=== PATIENT | female | born 1955 | race Caucasian/White ===

== ENCOUNTER 2016-09-30 11:21 | Inpatient (IN) | payer OTHER ==
[~2016-09-30] VITALS: Ht 152.4 cm; Wt 63.4 kg
[2016-09-30] VITALS (27 sets, daily range): BP systolic 81–151; BP diastolic 51–76; PULSE 86–112; RESP 12–22; Ht 152.4 cm; Wt 63.4 kg
[~2016-09-30 11:21] MED LIST: [UNRECOGNIZED DRUG - REMARK]
[2016-09-30] MEDS ORDERED: ATOR20TA38 PO (11:43)
[2016-09-30] MEDS ORDERED: PANT40TA3 PO (11:43)
[2016-09-30] MEDS ORDERED: CHOL400C PO (11:44)
[2016-09-30] MEDS ORDERED: CALC600T5 PO (11:45)
[2016-09-30] MEDS ORDERED: ALEN70TA30 PO (11:45)
[2016-09-30] MEDS ORDERED: ESCI10TA PO (11:49)
[2016-09-30] MEDS ORDERED: metroNIDAZOLE 500 MG/NS (PMX) 100 ML IVPB ONE (12:30)
[2016-09-30] MEDS ORDERED: AMPICILLIN/SULB 3 GM/NS (PMX) 100 ML IVPB ONE (12:30)
[2016-09-30] MEDS ORDERED: SOD CHLORIDE 0.9% 1,000 ML IV ONE (12:30)
[2016-09-30] MEDS ORDERED: BUPIVACAINE 0.25% (MPF) 10 ML 10 ML VIAL ONE (14:47)
[2016-09-30] MEDS ORDERED: morphine SULFATE/PF (10 MG/10 ML) INJ ONE (14:59)
[2016-09-30] MEDS ORDERED: MIDAZOLAM 1 MG/ML 2 ML INJ ONE (14:59)
[2016-09-30] MEDS ORDERED: METOCLOPRAMIDE 10 MG INJ IV PRN (16:30)
[2016-09-30] MEDS ORDERED: MEPERIDINE 25 MG INJ IV PRN (16:30)
[2016-09-30] MEDS ORDERED: ONDANSETRON 4 MG INJ IV PRN (16:30)
[2016-09-30] MEDS ORDERED: HYDROmorphONE (0.2 MG/ML) 10ML SYG IV PRN ×2 (16:30)
[2016-09-30] MEDS ORDERED: FENTAnyl 50 MCG/ML VIAL IV PRN (16:30)
[2016-09-30] MEDS ORDERED: NALOXONE (0.4 MG/ML) INJ IV PRN ×2 (16:30→21:00)
[2016-09-30] MEDS ORDERED: DIPHENHYDRAMINE 50 MG INJ IV PRN (16:30)
[2016-09-30] MEDS ORDERED: METHYLENE BLUE 1% 10 ML INJ ONE (17:43)
[2016-09-30] MEDS ORDERED: EPHEDrine SULFATE 50 MG/5 ML SYG ONE (18:27)
[2016-09-30] MEDS ORDERED: BUPIVACAINE 0.25% (MPF) 30 ML INJ ONE (20:26)
[2016-09-30] MEDS ORDERED: ROCURONIUM 50 MG INJ ONE (20:30)
[2016-09-30] MEDS ORDERED: LIDOCAINE 2% (SDV) 5 ML INJ ONE (20:30)
[2016-09-30] MEDS ORDERED: NEOSTIGMINE 3 MG/3 ML SYRINGE ONE (20:30)
[2016-09-30] MEDS ORDERED: ETOMIDATE 20 MG INJ ONE (20:30)
[2016-09-30] MEDS ORDERED: GLYCOPYRROLATE 0.4 MG INJ ONE (20:30)
[2016-09-30] MEDS ORDERED: ONDANSETRON 4 MG INJ ONE (20:31)
--- NOTE | 2016-09-30 20:44 | OPR ---
DATE OF OPERATION: 09/30/2016 PREOPERATIVE DIAGNOSIS: The patient was undergoing a sigmoid resection for a sigmoid polyp and had the left ureter transected between 10 to 12 cm below the ureteropelvic junction, so I was called to the operating room to help take care of this. POSTOPERATIVE DIAGNOSIS: The patient was undergoing a sigmoid resection for a sigmoid polyp and had the left ureter transected between 10 to 12 cm below the ureteropelvic junction, so I was called to the operating room to help take care of this. OPERATION PERFORMED: Left ureteroureterostomy and insertion of left ureteral JJ stent, 6-Burkinan x 28 cm long. TECHNIQUE: The patient was already in the operating room and the abdomen was opened. The 2 ends of the ureter were identified and the lower end was mobilized a little bit so one could bring it up without any tension. The clips that were on both sides of the ureter were used to use a little traction and then the upper segment was cut just proximal to the clip and then fish mouthed with a Chavarria scissors and the other side was done the same. Then I tried to put a 24 cm long x 6-Burkinan JJ stent. The proximal end went up to the kidney and curled well. I introduced the Glidewire up to the kidney and on it, I advanced the JJ stent, but then to pass it down to the bladder, it was difficult. It did go down, but I think when it reached the ureterovesical junction, it would not pop into the bladder. Therefore, we did fluoroscopy and see that it was not curling in the bladder well. Therefore, I had to remove it and then I used a longer one, a 6 x 28 cm JJ stent and this time, I passed the distal end into the bladder first using the 0.035 Glidewire and I pushed the JJ stent on it until I felt that it was comfortably into the bladder. At that moment I pulled the wire out and then the proximal curl of the JJ stent was pushed straight and had pushed up the ureter and about 12 cm and that did curl into the kidney before we did the ureteroureterostomy. We did fluoroscopy and one could see the curl of the JJ stent in the kidney and the other curl into the bladder. At that moment I used 4-0 Vicryl interrupted sutures and approximated the 2 segments of the ureter and used about 8 sutures together and then once the ureter was approximated and closed, I did also some supporting sutures on the fascia at the peritoneal covering to release the tension on it and covered that also. Then Dr. Gar took over and continued his procedure and he will insert a SACHIN drain, 10 mm wide to make sure that any urine extravasation will be drained and also will keep the Ramos catheter in. So the bladder would not get full and no efflux of urine would happen. Dictated By: AMANDA SCHWARTZ/EUGENE Conf#: [id number] DID#: [id number] MTDD
[2016-09-30] MEDS ORDERED: AMPICILLIN/SULB 3 GM/NS (PMX) 100 ML IVPB SCH (21:00)
--- NOTE | 2016-09-30 21:43 | OPR ---
DATE OF OPERATION: 09/30/2016 INDICATION: This is a 61-year-old female with unresectable polyp of the rectosigmoid. Colonoscopy was found to have an unresectable polyp at 20 cm. The patient is taken to the OR for laparoscopic converted to open rectosigmoidectomy and low anterior resection. Risks, alternatives, benefits, and personnel were discussed with the patient. Potential complications including but not limited to bleeding, infection, anastomotic leak, ureteral injury, need for colostomy were discussed with the patient and family. They expressed understanding and consents to the operation. PREOPERATIVE DIAGNOSIS: Unresectable rectosigmoid polyp. POSTOPERATIVE DIAGNOSES: Unresectable low rectal polyp. Intraoperative ureteral injury. OPERATION: 1. Laparoscopic converted to open rectosigmoidectomy 2. Laparoscopic splenic flexure mobilization 3. Low anterior resection with low colorectal anastomosis 4. Intraoperative ureteral repair to be dictated by Dr. Ramos. 5. Rigid rectosigmoidoscopy. . SURGEON: Mica Gar MD BUILDING INSPECTION ENGINEER: Dave Ortega MD PRIMARY UROLOGIC SURGEON: Dr. Ramos ESTIMATED BLOOD LOSS: 80 mL. SPECIMEN: Rectosigmoid colon, low anterior rectum, and proximal and distal donuts. COMPLICATIONS: Ureteral injury. ANESTHESIA: General and spinal. DESCRIPTION OF PROCEDURE: The patient was taken to the OR and prepped and draped in usual sterile fashion. Surgical timeout was performed. IV antibiotics were given. A periumbilical midline incision is made with a 10 blade. Dissection cautery was carried down to the fascia which was opened and the assistant infant teacher Gelport was placed. A suprapubic 12-mm optical trocar was placed under direct visualization. The left colic artery was identified after dissection carefully with laparoscopic Harmonic. The peritoneum around the left colic artery was freed. The left colic artery was then divided using a 45 mm vascular load Pajonal stapler. The white line of Toldt was then divided laterally and marched up to the splenic flexure. Laparoscopically, the white line of Toldt was followed approximately up to the spleen. The left colon was medialized. The omentum was freed from the transverse mesocolon. The colon was then medialized completely. Hand assist Gelport was used. Identification of the left ureter was performed. It appeared that the left ureter had some clips on it. There is concern for left ureteral injury. Decision was made to convert to open. Upon identification and with injection of methylene blue, there was indeed a leakage of methylene blue from the proximal ureter marcos identifying the ureter. Intraoperative consult was performed to urology. Urologist will dictate separately the ureteral repair. The sigmoid colon was further divided at the anterior promontory and proximally up to the left flank. This was sent for specimen after division of the sigmoid mesentery. Silk markings of distal markings. This was examined by the pathologist. No identification of the polyp. Rigid rectosigmoidoscopy was performed. This showed a low rectal unresectable polyp at approximately 10 cm from the anal verge. Additional rectum was mobilized by first freeing up the peritoneum on each side. The superior perirectal arteries were then suture ligated and divided with 2-0 silks ties. The rectum was then opened up identifying the polyp. The contour stapler was used to divide the low rectum approximately 1 to 2 cm distal to the polyp. This was then sent to pathology to confirm the unresectable polyp. After Dr. Ramos had repaired the ureteral injury, the anastomosis was performed. Anal sizers were used up to 29 mm. The anvil was then sutured in with a pursestring suture at the proximal colon. This was then attached to the EA stapler and the colorectal low pelvic anastomosis was performed. Leak test was performed, first by irrigating the pelvis and insufflating the rectum. There was no evidence of any leak. The irrigation was then washed out. A #10 SACHIN drain was placed in the left lower quadrant. The fascia was closed with 2 running #1 looped PDS from superior to inferior and inferior to superior tied down. The wound was irrigated with irrigation and Betadine. The skin was closed using skin marcos. Local anesthesia was injected. The drain was tied down with a 2-0 nylon. Dry dressings were applied. Dictated By: MICA GARG/EUGENE Conf#: [id number] DID#: [id number] JACINTO
[2016-09-30 21:50] LABS: ADD UMIC YES; URINE BILIRUBIN (Dip) 2+ (NEGATIVE); URINE BLOOD (Dip) 3+ (NEGATIVE); URINE COLOR GREEN (YELLOW); URINE GLUCOSE (Dip) NEGATIVE (NEGATIVE); URINE KETONES (Dip) NEGATIVE (NEGATIVE); URINE LEUKOCYTE ESTERASE (Dip) TRACE (NEGATIVE); URINE NITRITE (Dip) NEGATIVE (NEGATIVE); URINE TOTAL PROTEIN (Dip) 2+ (NEGATIVE); URINE UROBILINOGEN (Dip) 0.2 E.U./dL (0.1-1.0)
[2016-09-30 21:55] LABS: ADD SCAN DIFF NO
[2016-09-30 21:56] LABS: BASOPHIL # 0.1 10^3/ul (0.0-0.1); BASOPHILS % 0.3 % (0.0-2.0); EOSINOPHILS % 0.1 % (0.0-7.0); HEMATOCRIT 39.1 % (37.0-47.0); HEMOGLOBIN 12.5 g/dl (12.0-16.0); LYMPHOCYTES # 2.9 10^3/ul (0.8-2.9); LYMPHOCYTES % 20.2 % (15.0-51.0); MEAN PLATELET VOLUME 9.2 fl (7.4-10.4); MONOCYTE # 0.4 10^3/ul (0.3-0.9); MONOCYTES % 2.9 % (0.0-11.0); NEUTROPHIL # 10.9 10^3/ul (1.6-7.5); NEUTROPHILS % 76.3 % (39.0-77.0); PLATELET COUNT 341 10^3/UL (140-415); RED BLOOD COUNT 4.16 10^6/ul (4.20-5.40); RED CELL DISTRIBUTION WIDTH 12.6 % (11.5-14.5); WHITE BLOOD COUNT 14.3 10^3/ul (4.8-10.8)
[2016-09-30] MEDS: HYDROmorphONE 0.2 MG/ML PCA IV SCH (21:58)
[2016-09-30 22:12] LABS: ALBUMIN 2.7 g/dl (3.3-4.9); ALBUMIN/GLOBULIN RATIO 1.22; BILIRUBIN,INDIRECT 0.4 mg/dl (0-1.1); BILIRUBIN,TOTAL 0.4 mg/dl (0.2-1.3); TOTAL PROTEIN 4.9 g/dl (6.1-8.1)
[2016-09-30 22:13] LABS: CALCIUM 7.2 mg/dl (8.4-10.2); CREATININE 0.47 mg/dl (0.44-1.00)
[2016-09-30 22:28] LABS: ICTOTEST NEGATIVE (NEGATIVE)
[2016-09-30 22:30] LABS: BACTERIA,URINE FEW; SQUAMOUS EPITHELIAL CELL,UR FEW; URINE RBCS >200 /HPF (0)
--- NOTE | 2016-09-30 23:06 | RADRPT ---
PROCEDURE: Intraoperative imaging of the abdomen and pelvis with fluoroscopy. CLINICAL INDICATION: Abdominal pain. Intraoperative. TECHNIQUE: 9 images of the abdomen and pelvis were obtained in the operating room with an image in tensifier. No radiologist was in attendance. 20.9 seconds of fluoroscopy time was used. COMPARISON: No prior study is available for comparison. FINDINGS: Images demonstrate placement of a left ureteral double pigtail stent in satisfactory position. IMPRESSION: 1. Satisfactory intraoperative imaging of the abdomen and pelvis. RPTAT: QQ .Danny Isaac MD, MD Date Time Electronically viewed and signed by .Danny Isaac MD, MD on 09/30/2016 23:05 .R/
[2016-09-30] MEDS: LACTATED RINGER'S 1,000 ML IV SCH (23:30)
[2016-09-30] MEDS: metroNIDAZOLE 500 MG/NS (PMX) 100 ML IVPB SCH (23:30)
[2016-10-01] VITALS (13 sets, daily range): BP systolic 96–123; BP diastolic 52–66; PULSE 99–123; RESP 16–18
[2016-10-01] MEDS: AMPICILLIN/SULB 3 GM/NS (PMX) 100 ML IVPB SCH ×4 (00:31→17:35)
[2016-10-01] MEDS: metroNIDAZOLE 500 MG/NS (PMX) 100 ML IVPB SCH ×3 (04:55→20:30)
[2016-10-01 05:06] LABS: ADD SCAN DIFF NO
[2016-10-01 05:09] LABS: BASOPHILS % 0.2 % (0.0-2.0); HEMOGLOBIN 12.5 g/dl (12.0-16.0); LYMPHOCYTES # 0.7 10^3/ul (0.8-2.9); LYMPHOCYTES % 5.2 % (15.0-51.0); MEAN CORPUSCULAR HEMOGLOBIN 29.8 pg (29.0-33.0); MEAN CORPUSCULAR HGB CONC 32.1 g/dl (32.0-37.0); MEAN CORPUSCULAR VOLUME 93.1 fl (82.0-101.0); MEAN PLATELET VOLUME 9.3 fl (7.4-10.4); MONOCYTE # 0.7 10^3/ul (0.3-0.9); MONOCYTES % 4.9 % (0.0-11.0); NEUTROPHIL # 11.8 10^3/ul (1.6-7.5); NEUTROPHILS % 89.4 % (39.0-77.0); PLATELET COUNT 368 10^3/UL (140-415); RED BLOOD COUNT 4.19 10^6/ul (4.20-5.40); RED CELL DISTRIBUTION WIDTH 12.8 % (11.5-14.5); WHITE BLOOD COUNT 13.2 10^3/ul (4.8-10.8)
[2016-10-01 05:29] LABS: ALBUMIN 2.9 g/dl (3.3-4.9); ALBUMIN/GLOBULIN RATIO 1.2; BILIRUBIN,INDIRECT 0.5 mg/dl (0-1.1); BILIRUBIN,TOTAL 0.5 mg/dl (0.2-1.3); CALCIUM 7.3 mg/dl (8.4-10.2); CREATININE 0.6 mg/dl (0.44-1.00); POTASSIUM 3.4 mmol/L (3.5-5.1); TOTAL PROTEIN 5.3 g/dl (6.1-8.1)
[2016-10-01] MEDS ORDERED: POTASSIUM CHLORIDE 20 MEQ in SOD CHLORIDE 0.9% 100 ML IVPB ONE (06:00)
[2016-10-01] MEDS: LACTATED RINGER'S 1,000 ML IV SCH ×3 (07:48→22:25)
--- NOTE | 2016-10-01 13:15 | PN ---
Date/Time of Note Date/Time of Note DATE: 10/01/16 TIME: 13:14 Assessment/Plan VTE Prophylaxis VTE Prophylaxis Intervention: SCD's Lines/Catheters IV Catheter Type (from Nrs): Peripheral IV Urinary Cath still in place: Yes Reason Cath still needed: other (indicate) (ureteral stent) Assessment/Plan Chief Complaint/Hosp Course s/p lap converted to open sigmoidectomy and LAR with ureteral injury and intraoperative repair Problems: Assessment/Plan start clears Subjective 24 Hr Interval Summary Free Text/Dictation doing well, no issues, no nausea no vomiting Exam/Review of Systems Vital Signs Vitals Vital Signs Date Time Temp Pulse Resp B/P Pulse Ox O2 Delivery O2 Flow Rate FiO2 10/01/16 09:00 18 10/01/16 09:00 Nasal Cannula 2.0 10/01/16 07:54 97.9 119 123/62 97 Intake and Output 09/30/16 09/30/16 10/01/16 15:00 23:00 07:00 Intake Total 2100 ml 500 ml Output Total 500 ml 780 ml Balance 1600 ml -280 ml Exam dressings clean dry intact Results Result Diagram: 10/01/16 0449 10/01/16 0447 Results 24 hrs Laboratory Tests Test 09/30/16 20:52 09/30/16 21:50 10/01/16 04:47 10/01/16 04:49 Urine Color GREEN Urine Clarity CLEAR Urine pH 6.5 Urine Specific Weir 1.020 Urine Ketones NEGATIVE Urine Nitrite NEGATIVE Urine Bilirubin 2+ H Urine Ictotest NEGATIVE Urine Urobilinogen 0.2 E.U./dL Urine Leukocyte Esterase TRACE H Urine Microscopic RBC >200 Urine Microscopic WBC 0-2 Urine Squamous Epithelial Cells FEW Urine Bacteria FEW Urine Hemoglobin 3+ H Urine Glucose NEGATIVE Urine Total Protein 2+ H Bedside Glucose 142 White Blood Count 14.3 H 13.2 H Red Blood Count 4.16 L 4.19 L Hemoglobin 12.5 12.5 Hematocrit 39.1 39.0 Mean Corpuscular Volume 94.0 93.1 Mean Corpuscular Hemoglobin 30.0 29.8 Mean Corpuscular Hemoglobin Concent 32.0 32.1 Red Cell Distribution Width 12.6 12.8 Platelet Count 341 368 Mean Platelet Volume 9.2 9.3 Neutrophils % 76.3 89.4 H Lymphocytes % 20.2 5.2 L Monocytes % 2.9 4.9 Eosinophils % 0.1 0.0 Basophils % 0.3 0.2 Nucleated Red Blood Cells % 0.0 0.0 Neutrophils # 10.9 H 11.8 H Lymphocytes # 2.9 0.7 L Monocytes # 0.4 0.7 Eosinophils # 0.0 0.0 Basophils # 0.1 0.0 Nucleated Red Blood Cells # 0.0 0.0 Sodium Level 140 139 Potassium Level 3.0 L 3.4 L Chloride Level 111 H 110 Carbon Dioxide Level 23 25 Anion Gap 9 7 L Blood Urea Nitrogen 10 12 Creatinine 0.47 0.60 Glucose Level 183 163 Calcium Level 7.2 L 7.3 L Total Bilirubin 0.4 0.5 Direct Bilirubin 0.00 0.00 Indirect Bilirubin 0.4 0.5 Aspartate Amino Transf (AST/SGOT) 16 17 Alanine Aminotransferase (ALT/SGPT) 30 28 Alkaline Phosphatase 65 64 Total Protein 4.9 L 5.3 L Albumin 2.7 L 2.9 L Globulin 2.20 2.40 Albumin/Globulin Ratio 1.22 1.20 Medications Medications Current Medications Metronidazole 100 ml @ 100 mls/hr Q8H IVPB Last administered on 10/01/16 13: 13; Admin Dose 100 MLS/HR; Start 09/30/16 at 21:00 Lactated Ringer's (Lr) 1,000 ml @ 100 mls/hr Q10H IV Last administered on 10/01 07:48; Admin Dose 100 MLS/HR; Start 09/30/16 at 20:57 Naloxone HCl (Narcan) 0.2 mg Q2M PRN IV RR 8 BREATHS/MIN OR LESS; Start at 21:00 Hydromorphone HCl Q4PCA IV Last administered on 09/30/16 21:58; Admin Dose 6 MG; Start 09/30/16 at 21:00 Ampicillin Sodium/ Sulbactam Sodium (Unasyn 3gm/NS (Pmx)) 100 ml @ 100 mls/hr Q6 IVPB Last administered on 10/01/16 12:02; Admin Dose 100 MLS/HR; Start 05/09 at 00:00 Lokesh ROMAN Oct 01, 2016 13:15
--- NOTE | 2016-10-01 17:57 | PN ---
DATE: 10/01/2016 SUBJECTIVE: The patient is feeling comfortable. She does have pain because of her recent surgery, and she is awake, alert. The patient is status post surgery for colon sigmoid resection for a sigmo id polyp. Also she is status post ureteroureterostomy because of ureteral injury during surgery. OBJECTIVE: VITAL SIGNS: Her temperature is 97.9, respiration 18, blood pressure 123/62, pulse is 119. GENITOURINARY: The Ramos catheter is draining blood-tinged urine, and also it has some bluish color ation because of the methylene blue that the patient received during the surgery yesterday. Urine culture is no growth in 24 hours. CBC shows a white count of 13.2, hemoglobin is 12.5, hemato crit 39.0, platelet count 368,000. The BUN is 12, creatinine 0.6, sodium 139, potassium 3.4, chlori de 110, CO2 25. IMPRESSION: The patient doing well. The urine is bluish and blood tinged because of the methylene or indigo carmine that she got yesterday at the time of the surgery, and the bleeding will gradually clear. PLAN: Keep the Ramos catheter in place and will check her drainage from the SACHIN drain, the Clemente-P ratt drain 180 mL so far, and continue her antibiotics. Dictated By: AMANDA SCHWARTZ/EUGENE Conf#: [id number] DID#: [id number]
[2016-10-01] MEDS: HYDROmorphONE 0.2 MG/ML PCA IV SCH (18:42)
[2016-10-01] MEDS ORDERED: DIPHENHYDRAMINE 25 MG CAP PO PRN (22:00)
[2016-10-02] MEDS: AMPICILLIN/SULB 3 GM/NS (PMX) 100 ML IVPB SCH ×4 (00:15→18:15)
[2016-10-02 00:52] VITALS: BP 97/55; RESP 20
[2016-10-02] MEDS: metroNIDAZOLE 500 MG/NS (PMX) 100 ML IVPB SCH ×3 (04:47→20:52)
[2016-10-02 07:21] VITALS: BP 108/56; RESP 18
--- NOTE | 2016-10-02 08:41 | PN ---
Date/Time of Note Date/Time of Note DATE: 10/02/16 TIME: 08:40 Assessment/Plan VTE Prophylaxis VTE Prophylaxis Intervention: SCD's Lines/Catheters IV Catheter Type (from Nrs): Peripheral IV Urinary Cath still in place: Yes Reason Cath still needed: other (indicate) (bladder drainage after surgery) Assessment/Plan Chief Complaint/Hosp Course s/p lap converted to open sigmoidectomy and LAR with ureteral injury and intraoperative repair Problems: Assessment/Plan continue routine care Subjective 24 Hr Interval Summary Free Text/Dictation doing well, no issues, tolerating liquids, no flatus, no bm Exam/Review of Systems Vital Signs Vitals Vital Signs Date Time Temp Pulse Resp B/P Pulse Ox O2 Delivery O2 Flow Rate FiO2 10/02/16 07:21 98.3 94 18 108/56 96 10/01/16 09:00 Nasal Cannula 2.0 Intake and Output 10/01/16 10/01/16 10/02/16 14:59 22:59 06:59 Intake Total 310 ml 1500 ml 1180 ml Output Total 390 ml 1030 ml Balance 310 ml 1110 ml 150 ml Exam incision clean and intact, drain in place Results Result Diagram: 10/01/16 0449 10/01/16 0447 Medications Medications Current Medications Metronidazole 100 ml @ 100 mls/hr Q8H IVPB Last administered on 10/02/16 04: 47; Admin Dose 100 MLS/HR; Start 09/30/16 at 21:00 Lactated Ringer's (Lr) 1,000 ml @ 100 mls/hr Q10H IV Last administered on 10/01 22:25; Admin Dose 100 MLS/HR; Start 09/30/16 at 20:57 Naloxone HCl (Narcan) 0.2 mg Q2M PRN IV RR 8 BREATHS/MIN OR LESS; Start at 21:00 Hydromorphone HCl Q4PCA IV Last administered on 10/01/16 18:42; Admin Dose 6 MG; Start 09/30/16 at 21:00 Ampicillin Sodium/ Sulbactam Sodium (Unasyn 3gm/NS (Pmx)) 100 ml @ 100 mls/hr Q6 IVPB Last administered on 10/02/16 06:10; Admin Dose 100 MLS/HR; Start 05/09 at 00:00 Diphenhydramine HCl (Benadryl) 25 mg Q6H PRN PO ITCHING Last administered on t 22:16; Admin Dose 25 MG; Start 10/01/16 at 22:00 Lokesh ROMAN Oct 02, 2016 08:41
[2016-10-02 10:09] LABS: ADD SCAN DIFF NO
--- NOTE | 2016-10-02 10:13 | PN ---
DATE: 10/02/2016 SUBJECTIVE: The patient does complain of pain, but is manageable. OBJECTIVE: VITAL SIGNS: Temperature is 98.3, blood pressure 108/56, pulse 94, respiration 18. ABDOMEN: Has a dressing over the incision and the SACHIN drain. The SACHIN drain has drained 70 mL and the past 24 hours. The urine output is 1350 mL. The color of the urine is a slight bluish because of t he indigo carmine that she received during the procedure. The patient is on clear liquids. Her labs are from yesterday, BUN 12, creatinine 0.6. IMPRESSION: Status post left ureteroureterostomy and insertion of a JJ stent. PLAN: To keep the Ramos catheter in and the SACHIN drain in, to monitor any fluid drainage and later on we will have to do a cystoscopy and remove the JJ stent and do a retrograde to see if the ureter kwon s healed well. Dictated By: AMANDA SCHWARTZ/EUGENE Conf#: [id number] DID#: [id number]
[2016-10-02 10:15] LABS: BASOPHILS % 0.2 % (0.0-2.0); EOSINOPHILS % 0.2 % (0.0-7.0); HEMATOCRIT 29.6 % (37.0-47.0); HEMOGLOBIN 9.3 g/dl (12.0-16.0); LYMPHOCYTES # 1.7 10^3/ul (0.8-2.9); LYMPHOCYTES % 13.3 % (15.0-51.0); MEAN CORPUSCULAR HGB CONC 31.4 g/dl (32.0-37.0); MEAN CORPUSCULAR VOLUME 92.2 fl (82.0-101.0); MEAN PLATELET VOLUME 9.5 fl (7.4-10.4); MONOCYTE # 0.6 10^3/ul (0.3-0.9); MONOCYTES % 4.4 % (0.0-11.0); NEUTROPHIL # 10.5 10^3/ul (1.6-7.5); NEUTROPHILS % 81.4 % (39.0-77.0); PLATELET COUNT 302 10^3/UL (140-415); RED BLOOD COUNT 3.21 10^6/ul (4.20-5.40); RED CELL DISTRIBUTION WIDTH 13.1 % (11.5-14.5); WHITE BLOOD COUNT 12.8 10^3/ul (4.8-10.8)
--- NOTE | 2016-10-02 11:26 | PN ---
Date/Time of Note Date/Time of Note DATE: 10/02/16 TIME: 11:16 Assessment/Plan VTE Prophylaxis VTE Prophylaxis Intervention: SCD's Lines/Catheters IV Catheter Type (from Nrsg): Peripheral IV Urinary Cath still in place: Yes Reason Cath still needed: other (indicate) (per Urology ) Assessment/Plan Assessment/Plan 61 yo female with 1. 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 MDD: resume SSRIs 3. Hyperlipidemia: resume Lipitor 4, GERD: resume PPI Prophylaxis: SCDs and PPI Disposition: per Gen Surgery and Urology Subjective 24 Hr Interval Summary Free Text/Dictation Patient doing OK on POD#1 On clears and vinson in place Exam/Review of Systems Vital Signs Vitals Vital Signs Date Time Temp Pulse Resp B/P Pulse Ox O2 Delivery O2 Flow Rate FiO2 10/02/16 07:21 98.3 94 18 108/56 96 10/01/16 09:00 Nasal Cannula 2.0 Intake and Output 10/01/16 10/01/16 10/02/16 15:00 23:00 07:00 Intake Total 310 ml 1500 ml 1180 ml Output Total 390 ml 1030 ml Balance 310 ml 1110 ml 150 ml Exam Constitutional: alert, distress (mild from pain ), oriented Cardiovascular: nl pulses, regular rate and rhythm Gastrointestinal: non-tender, soft Musculoskeletal: nl extremities to inspection Extremities: normal pulses, other (no edema, clubbing or cyanosis ) Neurological: INSPECTOR BARREL II-XII intact, nl mental status, nl speech, other (limited exam given pain ) Results Result Diagram: 10/02/16 0926 10/01/16 0447 Results 24 hrs Laboratory Tests Test 10/02/16 09:26 White Blood Count 12.8 H Red Blood Count 3.21 #L Hemoglobin 9.3 #L Hematocrit 29.6 #L Mean Corpuscular Volume 92.2 Mean Corpuscular Hemoglobin 29.0 Mean Corpuscular Hemoglobin Concent 31.4 L Red Cell Distribution Width 13.1 Platelet Count 302 Mean Platelet Volume 9.5 Neutrophils % 81.4 H Lymphocytes % 13.3 L Monocytes % 4.4 Eosinophils % 0.2 Basophils % 0.2 Nucleated Red Blood Cells % 0.0 Neutrophils # 10.5 H Lymphocytes # 1.7 Monocytes # 0.6 Eosinophils # 0.0 Basophils # 0.0 Nucleated Red Blood Cells # 0.0 Medications Medications Current Medications Metronidazole 100 ml @ 100 mls/hr Q8H IVPB Last administered on 10/02/16 04: 47; Admin Dose 100 MLS/HR; Start 09/30/16 at 21:00 Lactated Ringer's (Lr) 1,000 ml @ 100 mls/hr Q10H IV Last administered on 10/01 22:25; Admin Dose 100 MLS/HR; Start 09/30/16 at 20:57 Naloxone HCl (Narcan) 0.2 mg Q2M PRN IV RR 8 BREATHS/MIN OR LESS; Start at 21:00 Hydromorphone HCl Q4PCA IV Last administered on 10/01/16 18:42; Admin Dose 6 MG; Start 09/30/16 at 21:00 Ampicillin Sodium/ Sulbactam Sodium (Unasyn 3gm/NS (Pmx)) 100 ml @ 100 mls/hr Q6 IVPB Last administered on 10/02/16 06:10; Admin Dose 100 MLS/HR; Start 05/09 at 00:00 Diphenhydramine HCl (Benadryl) 25 mg Q6H PRN PO ITCHING Last administered on 22:16; Admin Dose 25 MG; Start 10/01/16 at 22:00 JT ALFARO Oct 02, 2016 11:26
[2016-10-02] MEDS: LACTATED RINGER'S 1,000 ML IV SCH ×2 (12:25→23:23)
[2016-10-02] MEDS: ESCITALOPRAM 10 MG TAB PO SCH (12:26)
[2016-10-02] MEDS: PANTOPRAZOLE (EC) 40 MG TAB PO SCH (12:26)
[2016-10-02] MEDS: HYDROmorphONE 0.2 MG/ML PCA IV SCH (18:15)
[2016-10-02 19:34] VITALS: BP 113/58; RESP 20
[2016-10-02] MEDS: CALCIUM CARBONATE 500 MG CHEW TAB PO SCH (20:51)
[2016-10-02] MEDS: ATORVASTATIN 20 MG TAB PO SCH (20:51)
[2016-10-02] MEDS ORDERED: CALCIUM CARBONATE 500 MG CHEW TAB PO SCH (21:00)
[2016-10-03] MEDS: AMPICILLIN/SULB 3 GM/NS (PMX) 100 ML IVPB SCH ×5 (00:14→23:37)
[2016-10-03 05:11] LABS: ADD SCAN DIFF NO
[2016-10-03 05:13] LABS: BASOPHILS % 0.2 % (0.0-2.0); EOSINOPHILS # 0.1 10^3/ul (0.0-0.5); EOSINOPHILS % 0.6 % (0.0-7.0); HEMATOCRIT 28.5 % (37.0-47.0); HEMOGLOBIN 9.1 g/dl (12.0-16.0); LYMPHOCYTES # 1.5 10^3/ul (0.8-2.9); LYMPHOCYTES % 12.5 % (15.0-51.0); MEAN CORPUSCULAR HEMOGLOBIN 29.4 pg (29.0-33.0); MEAN CORPUSCULAR HGB CONC 31.9 g/dl (32.0-37.0); MEAN CORPUSCULAR VOLUME 92.2 fl (82.0-101.0); MEAN PLATELET VOLUME 9.3 fl (7.4-10.4); MONOCYTE # 0.5 10^3/ul (0.3-0.9); MONOCYTES % 3.8 % (0.0-11.0); NEUTROPHIL # 9.9 10^3/ul (1.6-7.5); NEUTROPHILS % 82.6 % (39.0-77.0); PLATELET COUNT 310 10^3/UL (140-415); RED BLOOD COUNT 3.09 10^6/ul (4.20-5.40); RED CELL DISTRIBUTION WIDTH 13.1 % (11.5-14.5)
[2016-10-03 05:25] LABS: ALBUMIN 2.6 g/dl (3.3-4.9); ALBUMIN/GLOBULIN RATIO 1.04; BILIRUBIN,INDIRECT 0.3 mg/dl (0-1.1); BILIRUBIN,TOTAL 0.3 mg/dl (0.2-1.3); CALCIUM 7.6 mg/dl (8.4-10.2); CREATININE 0.53 mg/dl (0.44-1.00); POTASSIUM 3.2 mmol/L (3.5-5.1); TOTAL PROTEIN 5.1 g/dl (6.1-8.1)
[2016-10-03 05:33] LABS: MAGNESIUM 1.9 mg/dl (1.7-2.5); PHOSPHORUS 2.3 mg/dl (2.5-4.9)
[2016-10-03] MEDS: metroNIDAZOLE 500 MG/NS (PMX) 100 ML IVPB SCH ×3 (05:43→21:20)
[2016-10-03] MEDS: PANTOPRAZOLE (EC) 40 MG TAB PO SCH ×2 (05:43→20:00)
[2016-10-03 07:51] VITALS: BP 112/58; RESP 18
[2016-10-03] MEDS: CHOLECALCIFEROL 400 UNITS TAB PO SCH (08:45)
[2016-10-03] MEDS: ESCITALOPRAM 10 MG TAB PO SCH (08:45)
[2016-10-03] MEDS: CALCIUM CARBONATE 500 MG CHEW TAB PO SCH ×2 (08:46→20:00)
[2016-10-03] MEDS: LACTATED RINGER'S 1,000 ML IV SCH (08:57)
[2016-10-03] MEDS ORDERED: ACETAMINOPHEN 325 MG TAB PO PRN (10:00)
[2016-10-03] MEDS: D5-NS + KCL 20 MEQ 1,000 ML IV SCH ×2 (10:25→20:15)
[2016-10-03] MEDS ORDERED: MAGNESIUM SULFATE 1 GM/D5W 100 ML IVPB ONE (10:30)
[2016-10-03] MEDS ORDERED: HYDROmorphONE 0.2 MG/ML PCA IV SCH (11:00)
[2016-10-03] MEDS ORDERED: POTASSIUM PHOSPHATE 30 MM in SOD CHLORIDE 0.9% 500 ML IVPB ONE (11:30)
[2016-10-03] MEDS ORDERED: HYDROmorphONE 1 MG/ML SYG IV PRN ×2 (11:30)
--- NOTE | 2016-10-03 11:37 | PN ---
Date/Time of Note Date/Time of Note DATE: 10/03/16 TIME: 11:27 Assessment/Plan VTE Prophylaxis VTE Prophylaxis Intervention: SCD's Lines/Catheters IV Catheter Type (from Nrs): Peripheral IV Urinary Cath still in place: Yes Reason Cath still needed: other (indicate) (per Urology, monitoring renal function) Assessment/Plan Assessment/Plan 61 yo female with 1. POD#2 s/p laparoscopic converted to open sigmoidectomy and LAR with ureteral injury and intraoperative repair. 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 MDD: back on SSRIs 3. Hyperlipidemia: back on Lipitor 4, GERD: on PPI Prophylaxis: SCDs and PPI Disposition: per Gen Surgery and Urology, d/c REAL ESTATE ACCOUNT EXECUTIVE today. Subjective 24 Hr Interval Summary Free Text/Dictation Patient with episodes of Lethargy and somnolence with occasional drop of O2 sats No complaints other then seems oversedated currently, discontinuing REAL ESTATE ACCOUNT EXECUTIVE and close monitoring for now, Narcan if needed Exam/Review of Systems Vital Signs Vitals Vital Signs Date Time Temp Pulse Resp B/P Pulse Ox O2 Delivery O2 Flow Rate FiO2 10/03/16 11:13 18 10/03/16 09:52 99.5 10/03/16 07:51 119 112/58 90 10/01/16 09:00 Nasal Cannula 2.0 Intake and Output 10/02/16 10/02/16 10/03/16 15:00 23:00 07:00 Intake Total 100 ml 1300 ml 1680 ml Output Total 1200 ml 1210 ml Balance 100 ml 100 ml 470 ml Exam Constitutional: oriented, other (lethargic ), well developed Respiratory: clear to auscultation, normal air movement Cardiovascular: nl pulses, regular rate and rhythm Gastrointestinal: non-tender, soft Musculoskeletal: nl extremities to inspection Extremities: normal pulses, other (no edema, clubbing or cyanosis ) Neurological: SUPPLY CHAIN ASSISTANT II-XII intact, lethargic, nl speech Results Result Diagram: 10/03/16 0437 10/03/16 0437 Results 24 hrs Laboratory Tests Test 10/03/16 04:37 White Blood Count 12.0 H Red Blood Count 3.09 L Hemoglobin 9.1 L Hematocrit 28.5 L Mean Corpuscular Volume 92.2 Mean Corpuscular Hemoglobin 29.4 Mean Corpuscular Hemoglobin Concent 31.9 L Red Cell Distribution Width 13.1 Platelet Count 310 Mean Platelet Volume 9.3 Neutrophils % 82.6 H Lymphocytes % 12.5 L Monocytes % 3.8 Eosinophils % 0.6 Basophils % 0.2 Nucleated Red Blood Cells % 0.0 Neutrophils # 9.9 H Lymphocytes # 1.5 Monocytes # 0.5 Eosinophils # 0.1 Basophils # 0.0 Nucleated Red Blood Cells # 0.0 Sodium Level 137 Potassium Level 3.2 L Chloride Level 102 Carbon Dioxide Level 31 Anion Gap 7 L Blood Urea Nitrogen 8 Creatinine 0.53 Glucose Level 110 # Calcium Level 7.6 L Phosphorus Level 2.3 L Magnesium Level 1.9 Total Bilirubin 0.3 Direct Bilirubin 0.00 Indirect Bilirubin 0.3 Aspartate Amino Transf (AST/SGOT) 32 Alanine Aminotransferase (ALT/SGPT) 31 Alkaline Phosphatase 58 Total Protein 5.1 L Albumin 2.6 L Globulin 2.50 Albumin/Globulin Ratio 1.04 Medications Medications Current Medications Metronidazole (Flagyl 500 Mg (Pmx)) 100 ml @ 100 mls/hr Q8H IVPB Last administered on 10/03/16 05:43; Admin Dose 100 MLS/HR; Start 09/30/16 at 21:00 Naloxone HCl 0.2 mg 0.2 mg Q2M PRN IV RR 8 BREATHS/MIN OR LESS; Start 09/30/16 at 21:00 Ampicillin Sodium/ Sulbactam Sodium (Unasyn 3gm/NS (Pmx)) 100 ml @ 100 mls/hr Q6 IVPB Last administered on 10/03/16 06:51; Admin Dose 100 MLS/HR; Start 05/09 at 00:00 Diphenhydramine HCl (Benadryl) 25 mg Q6H PRN PO ITCHING Last administered on 22:16; Admin Dose 25 MG; Start 10/01/16 at 22:00 Atorvastatin Calcium (Lipitor) 20 mg QHS PO Last administered on 10/02/16 20: 51; Admin Dose 20 MG; Start 10/02/16 at 21:00 Escitalopram Oxalate (Lexapro) 10 mg DAILY PO Last administered on 10/03/16 08 :45; Admin Dose 10 MG; Start 10/02/16 at 11:30 Pantoprazole (Protonix Tab) 40 mg DAILY@06 PO Last administered on 10/03/16 05 :43; Admin Dose 40 MG; Start 10/02/16 at 11:30 Cholecalciferol (Vitamin D) 400 units DAILY PO Last administered on 10/03/16 08:45; Admin Dose 400 UNITS; Start 10/03/16 at 09:00 Calcium Carbonate 500 mg 500 mg BID PO Last administered on 10/03/16 08:46; Admin Dose 500 MG; Start 10/02/16 at 21:00 Potassium Phosphate 30 mm/ Sodium Chloride 510 ml @ 100 mls/hr ONCE ONCE IVPB ; Start 10/03/16 at 11:30; Stop 10/03/16 at 16:35 Magnesium Sulfate/ Dextrose (Magnesium Sulfate 1 Gm/D5W) 100 ml @ 100 mls/hr ONCE ONCE IVPB Last administered on 10/03/16 10:26; Admin Dose 100 MLS/HR; Start 10/03/16 at 10:30; Stop 10/03/16 at 11:29 Acetaminophen 650 mg 650 mg Q6H PRN PO PAIN AND OR ELEVATED TEMP; Start at 10:00 Potassium Chloride/Dextrose/ Sod Cl (D5-NS + KCl 20 Meq) 1,000 ml @ 100 mls/hr Q10H IV Last administered on 10/03/16 10:25; Admin Dose 100 MLS/HR; Start at 10:15 Ketorolac Tromethamine (Toradol) 30 mg Q6 IV ; Start 10/03/16 at 12:00; Stop at 12:00; Status UNV Hydromorphone HCl (Dilaudid) 0.5 mg Q3 PRN IV PAIN LEVEL 1-5; Start 10/03/16 at 11:30; Status UNV Hydromorphone HCl (Dilaudid) 1 mg Q3 PRN IV PAIN; Start 10/03/16 at 11:30; Status UNV JT ALFARO Oct 03, 2016 11:37
--- NOTE | 2016-10-03 12:39 | PN ---
Date/Time of Note Date/Time of Note DATE: 10/03/16 TIME: 12:38 Assessment/Plan VTE Prophylaxis VTE Prophylaxis Intervention: SCD's Lines/Catheters IV Catheter Type (from Nrs): Peripheral IV Urinary Cath still in place: Yes Reason Cath still needed: other (indicate) (ureter repair) Assessment/Plan Chief Complaint/Hosp Course s/p lap converted to open sigmoidectomy and LAR with ureteral injury and intraoperative repair Problems: Assessment/Plan will hold off on oral liquids for now Subjective 24 Hr Interval Summary Free Text/Dictation some nausea no vomiting, no flatus Exam/Review of Systems Vital Signs Vitals Vital Signs Date Time Temp Pulse Resp B/P Pulse Ox O2 Delivery O2 Flow Rate FiO2 10/03/16 11:13 18 10/03/16 09:52 99.5 10/03/16 07:51 119 112/58 90 10/01/16 09:00 Nasal Cannula 2.0 Intake and Output 10/02/16 10/02/16 10/03/16 15:00 23:00 07:00 Intake Total 100 ml 1300 ml 1680 ml Output Total 1200 ml 1210 ml Balance 100 ml 100 ml 470 ml Exam intact incision Results Result Diagram: 10/03/16 0437 10/03/16 0437 Results 24 hrs Laboratory Tests Test 10/03/16 04:37 White Blood Count 12.0 H Red Blood Count 3.09 L Hemoglobin 9.1 L Hematocrit 28.5 L Mean Corpuscular Volume 92.2 Mean Corpuscular Hemoglobin 29.4 Mean Corpuscular Hemoglobin Concent 31.9 L Red Cell Distribution Width 13.1 Platelet Count 310 Mean Platelet Volume 9.3 Neutrophils % 82.6 H Lymphocytes % 12.5 L Monocytes % 3.8 Eosinophils % 0.6 Basophils % 0.2 Nucleated Red Blood Cells % 0.0 Neutrophils # 9.9 H Lymphocytes # 1.5 Monocytes # 0.5 Eosinophils # 0.1 Basophils # 0.0 Nucleated Red Blood Cells # 0.0 Sodium Level 137 Potassium Level 3.2 L Chloride Level 102 Carbon Dioxide Level 31 Anion Gap 7 L Blood Urea Nitrogen 8 Creatinine 0.53 Glucose Level 110 # Calcium Level 7.6 L Phosphorus Level 2.3 L Magnesium Level 1.9 Total Bilirubin 0.3 Direct Bilirubin 0.00 Indirect Bilirubin 0.3 Aspartate Amino Transf (AST/SGOT) 32 Alanine Aminotransferase (ALT/SGPT) 31 Alkaline Phosphatase 58 Total Protein 5.1 L Albumin 2.6 L Globulin 2.50 Albumin/Globulin Ratio 1.04 Medications Medications Current Medications Metronidazole (Flagyl 500 Mg (Pmx)) 100 ml @ 100 mls/hr Q8H IVPB Last administered on 10/03/16 05:43; Admin Dose 100 MLS/HR; Start 09/30/16 at 21:00 Naloxone HCl 0.2 mg 0.2 mg Q2M PRN IV RR 8 BREATHS/MIN OR LESS; Start 09/30/16 at 21:00 Ampicillin Sodium/ Sulbactam Sodium (Unasyn 3gm/NS (Pmx)) 100 ml @ 100 mls/hr Q6 IVPB Last administered on 10/03/16 11:52; Admin Dose 100 MLS/HR; Start 05/09 at 00:00 Diphenhydramine HCl (Benadryl) 25 mg Q6H PRN PO ITCHING Last administered on 22:16; Admin Dose 25 MG; Start 10/01/16 at 22:00 Atorvastatin Calcium (Lipitor) 20 mg QHS PO Last administered on 10/02/16 20: 51; Admin Dose 20 MG; Start 10/02/16 at 21:00 Escitalopram Oxalate (Lexapro) 10 mg DAILY PO Last administered on 10/03/16 08 :45; Admin Dose 10 MG; Start 10/02/16 at 11:30 Pantoprazole (Protonix Tab) 40 mg DAILY@06 PO Last administered on 10/03/16 05 :43; Admin Dose 40 MG; Start 10/02/16 at 11:30 Cholecalciferol (Vitamin D) 400 units DAILY PO Last administered on 10/03/16 08:45; Admin Dose 400 UNITS; Start 10/03/16 at 09:00 Calcium Carbonate 500 mg 500 mg BID PO Last administered on 10/03/16 08:46; Admin Dose 500 MG; Start 10/02/16 at 21:00 Potassium Phosphate/Sodium Chloride (K Phos (Mm)/NS) 510 ml @ 100 mls/hr ONCE ONCE IVPB ; Start 10/03/16 at 11:30; Stop 10/03/16 at 16:35 Acetaminophen 650 mg 650 mg Q6H PRN PO PAIN AND OR ELEVATED TEMP; Start at 10:00 Potassium Chloride/Dextrose/ Sod Cl (D5-NS + KCl 20 Meq) 1,000 ml @ 100 mls/hr Q10H IV Last administered on 10/03/16t 10:25; Admin Dose 100 MLS/HR; Start at 10:15 Ketorolac Tromethamine (Toradol) 30 mg Q6 IV ; Start 10/03/16 at 12:00; Stop at 12:00 Hydromorphone HCl (Dilaudid) 0.5 mg Q3H PRN IV PAIN LEVEL 1-5; Start 10/03/16 at 11:30 Hydromorphone HCl (Dilaudid) 1 mg Q3H PRN IV SEVERE PAIN LEVEL 7-10; Start at 11:30 Lokesh ROMAN Oct 03, 2016 12:39
[2016-10-03] MEDS: KETOROLAC 30 MG INJ IV SCH ×3 (12:53→23:36)
[2016-10-03 14:05] LABS: ADD UMIC YES; URINE COLOR YELLOW (YELLOW)
[2016-10-03 14:06] LABS: URINE BILIRUBIN (Dip) 2+ (NEGATIVE); URINE BLOOD (Dip) 3+ (NEGATIVE); URINE GLUCOSE (Dip) NEGATIVE (NEGATIVE); URINE KETONES (Dip) 2+ (NEGATIVE); URINE LEUKOCYTE ESTERASE (Dip) TRACE (NEGATIVE); URINE NITRITE (Dip) NEGATIVE (NEGATIVE); URINE TOTAL PROTEIN (Dip) 2+ (NEGATIVE); URINE UROBILINOGEN (Dip) 0.2 E.U./dL (0.1-1.0)
[2016-10-03 14:21] LABS: BACTERIA,URINE FEW; ICTOTEST NEGATIVE (NEGATIVE); URINE RBCS >200 /HPF (0)
[2016-10-03] MEDS: ONDANSETRON 4 MG INJ IV PRN ×2 (16:46→23:01)
[2016-10-03 19:12] VITALS: BP 110/55; RESP 18
[2016-10-03] MEDS: ATORVASTATIN 20 MG TAB PO SCH (20:00)
--- NOTE | 2016-10-04 03:05 | RADRPT ---
PROCEDURE: XR Abdomen. CLINICAL INDICATION: Vomiting, nasogastric tube placement. TECHNIQUE: Supine AP view of the abdomen. COMPARISON: None. FINDINGS: A nasogastric tube terminates in the inferior esophagus. Recommend advancement. Gas in the left upp er quadrant may lie within the stomach and/or colon. Additional gas is seen within nondilated colon and small bowel. No abnormal calcifications are identified. A left-sided double J ureteral stent is partially imaged. Skin marcos project over the abdominopelvic region. IMPRESSION: 1. Nasogastric tube tip in the distal esophagus. Recommend advancement. 2. Left upper quadrant gas, possibly within the stomach and/or colon. RPTAT: HTAR .Dirk Bishop MD, MD Date Time Electronically viewed and signed by .Dirk Bishop MD, on 10/04/2016 03:05 .R/
[2016-10-04] MEDS: metroNIDAZOLE 500 MG/NS (PMX) 100 ML IVPB SCH ×3 (05:02→20:58)
[2016-10-04 05:03] LABS: ADD SCAN DIFF NO
[2016-10-04 05:09] LABS: BASOPHILS % 0.2 % (0.0-2.0); EOSINOPHILS # 0.1 10^3/ul (0.0-0.5); EOSINOPHILS % 0.5 % (0.0-7.0); HEMATOCRIT 32.5 % (37.0-47.0); HEMOGLOBIN 10.4 g/dl (12.0-16.0); LYMPHOCYTES # 0.9 10^3/ul (0.8-2.9); LYMPHOCYTES % 8.8 % (15.0-51.0); MEAN CORPUSCULAR HEMOGLOBIN 29.2 pg (29.0-33.0); MEAN CORPUSCULAR VOLUME 91.3 fl (82.0-101.0); MEAN PLATELET VOLUME 9.3 fl (7.4-10.4); MONOCYTE # 0.4 10^3/ul (0.3-0.9); MONOCYTES % 4.3 % (0.0-11.0); NEUTROPHIL # 8.7 10^3/ul (1.6-7.5); NEUTROPHILS % 85.9 % (39.0-77.0); PLATELET COUNT 367 10^3/UL (140-415); RED BLOOD COUNT 3.56 10^6/ul (4.20-5.40); RED CELL DISTRIBUTION WIDTH 13.1 % (11.5-14.5); WHITE BLOOD COUNT 10.1 10^3/ul (4.8-10.8)
[2016-10-04 05:23] LABS: ALBUMIN 2.6 g/dl (3.3-4.9); POTASSIUM 3.1 mmol/L (3.5-5.1)
[2016-10-04 05:25] LABS: CREATININE 0.57 mg/dl (0.44-1.00); MAGNESIUM 2.1 mg/dl (1.7-2.5); PHOSPHORUS 3.4 mg/dl (2.5-4.9)
[2016-10-04 05:26] LABS: ALBUMIN/GLOBULIN RATIO 1.04; BILIRUBIN,INDIRECT 0.4 mg/dl (0-1.1); BILIRUBIN,TOTAL 0.4 mg/dl (0.2-1.3); CALCIUM 8.2 mg/dl (8.4-10.2); TOTAL PROTEIN 5.1 g/dl (6.1-8.1)
[2016-10-04] MEDS: PANTOPRAZOLE (EC) 40 MG TAB PO SCH ×2 (05:43→15:54)
[2016-10-04] MEDS: AMPICILLIN/SULB 3 GM/NS (PMX) 100 ML IVPB SCH ×3 (06:14→17:31)
[2016-10-04] MEDS: D5-NS + KCL 20 MEQ 1,000 ML IV SCH ×2 (06:15→11:36)
[2016-10-04] MEDS: KETOROLAC 30 MG INJ IV SCH ×3 (06:15→17:13)
[2016-10-04 07:00] VITALS: BP 131/72; RESP 20
[2016-10-04] MEDS: CHOLECALCIFEROL 400 UNITS TAB PO SCH (09:00)
[2016-10-04] MEDS: CALCIUM CARBONATE 500 MG CHEW TAB PO SCH ×2 (09:00→21:00)
[2016-10-04] MEDS: ESCITALOPRAM 10 MG TAB PO SCH (09:00)
--- NOTE | 2016-10-04 11:34 | PN ---
DATE: 10/04/2016 SUBJECTIVE: Nausea and postop abdominal pain. HISTORY OF PRESENT ILLNESS: The patient is status post colon resection and ureteroureterostomy seco ndary to an injury to the left ureter and insertion of a JJ stent. OBJECTIVE: VITAL SIGNS: Temperature today is 98.6, pulse is 93, respirations 20, blood pressure 131/72. ABDOMEN: A little distended. She does have NG tube that is draining well and she did have that bec ause of nausea yesterday and the Ramos catheter is draining clear urine. LABORATORY DATA: The urine output is 1600 mL in the last 12 hours. The SACHIN drain drained 350 mL, ye day drained 10 mL and the day before, 70 mL. The NG tube drained 1400 mL. The patient stated t hat she did have a bowel movement this morning and the CBC shows a white count of 10.1, hemoglobin 1 0.4, hematocrit 32.5. BUN is 13, creatinine 0.57, sodium 143, potassium 3.1, chloride 100, CO2 35. The patient had a KUB done this morning and on this, I could see the JJ stent curl into the kidney and into the bladder. RECOMMENDATION: From a urological standpoint now is to keep the Ramos catheter in place and continu e to monitor the drainage from the SACHIN drain and also as far as her feeding and NG tube, Dr. Rin bright decide on that. Dictated By: AMANDA SCHWARTZ/EUGENE Conf#: [id number] DID#: [id number]
--- NOTE | 2016-10-04 12:10 | PN ---
Date/Time of Note Date/Time of Note DATE: 10/04/16 TIME: 12:03 Assessment/Plan VTE Prophylaxis VTE Prophylaxis Intervention: SCD's Lines/Catheters IV Catheter Type (from Nrsg): Peripheral IV Urinary Cath still in place: Yes (URINE IS YELLOW BUT BLUE TINGED) Reason Cath still needed: other (indicate) (monitor UOP ) Assessment/Plan Assessment/Plan 61 yo female with: 1. POD#3 s/p laparoscopic converted to open sigmoidectomy and LAR with ureteral injury and intraoperative repair. Patient with episodes of Nausea, vomiting NGT placed overnight with some relief, BM x1 today but reporting no flatus.... NPO currently Dr Ramos following along with gen surgery Dr Gar Ambulation and Incentive spirometer to be encouraged 2. MDD: back on SSRIs when able to take po 3. Hyperlipidemia: back on Lipitor when able to take po 4. GERD: on PPI bid 5. Hypokalemia: repleting Prophylaxis: SCDs and PPI Disposition: per Gen Surgery and Urology, NGT and NPO for now. Exam/Review of Systems Vital Signs Vitals Vital Signs Date Time Temp Pulse Resp B/P Pulse Ox O2 Delivery O2 Flow Rate FiO2 10/04/16 07:00 98.6 93 20 131/72 97 10/03/16 20:15 Nasal Cannula 4.0 Intake and Output 10/03/16 10/03/16 10/04/16 15:00 23:00 07:00 Intake Total 900 ml 1700 ml 700 ml Output Total 40 ml 1260 ml 2850 ml Balance 860 ml 440 ml -2150 ml Exam Constitutional: alert, oriented, well developed Respiratory: clear to auscultation, normal air movement Cardiovascular: nl pulses, regular rate and rhythm Gastrointestinal: non-tender, soft Musculoskeletal: nl extremities to inspection Extremities: normal pulses, other (no edema, clubbing or cyanosis ) 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, nl mental status, nl speech, nl strength Results Result Diagram: 10/04/1641910/04/16419 Results 24 hrs Laboratory Tests Test 10/04/16 04:20 White Blood Count 10.1 Red Blood Count 3.56 L Hemoglobin 10.4 L Hematocrit 32.5 L Mean Corpuscular Volume 91.3 Mean Corpuscular Hemoglobin 29.2 Mean Corpuscular Hemoglobin Concent 32.0 Red Cell Distribution Width 13.1 Platelet Count 367 Mean Platelet Volume 9.3 Neutrophils % 85.9 H Lymphocytes % 8.8 L Monocytes % 4.3 Eosinophils % 0.5 Basophils % 0.2 Nucleated Red Blood Cells % 0.0 Neutrophils # 8.7 H Lymphocytes # 0.9 Monocytes # 0.4 Eosinophils # 0.1 Basophils # 0.0 Nucleated Red Blood Cells # 0.0 Sodium Level 143 Potassium Level 3.1 L Chloride Level 100 Carbon Dioxide Level 35 H Anion Gap 11 Blood Urea Nitrogen 13 Creatinine 0.57 Glucose Level 155 Calcium Level 8.2 L Phosphorus Level 3.4 Magnesium Level 2.1 Total Bilirubin 0.4 Direct Bilirubin 0.00 Indirect Bilirubin 0.4 Aspartate Amino Transf (AST/SGOT) 23 Alanine Aminotransferase (ALT/SGPT) 30 Alkaline Phosphatase 52 Total Protein 5.1 L Albumin 2.6 L Globulin 2.50 Albumin/Globulin Ratio 1.04 Medications Medications Current Medications Metronidazole (Flagyl 500 Mg (Pmx)) 100 ml @ 100 mls/hr Q8H IVPB Last administered on 10/04/16 05:02; Admin Dose 100 MLS/HR; Start 09/30/16 at 21:00 Naloxone HCl 0.2 mg 0.2 mg Q2M PRN IV RR 8 BREATHS/MIN OR LESS; Start 09/30/16 at 21:00 Ampicillin Sodium/ Sulbactam Sodium (Unasyn 3gm/NS (Pmx)) 100 ml @ 100 mls/hr Q6 IVPB Last administered on 10/04/16 11:34; Admin Dose 100 MLS/HR; Start 05/09 at 00:00 Diphenhydramine HCl (Benadryl) 25 mg Q6H PRN PO ITCHING Last administered on 22:16; Admin Dose 25 MG; Start 10/01/16 at 22:00 Atorvastatin Calcium (Lipitor) 20 mg QHS PO Last administered on 10/03/16 20: 00; Admin Dose 20 MG; Start 10/02/16 at 21:00 Escitalopram Oxalate (Lexapro) 10 mg DAILY PO Last administered on 10/03/16 08 :45; Admin Dose 10 MG; Start 10/02/16 at 11:30 Cholecalciferol (Vitamin D) 400 units DAILY PO Last administered on 10/03/16 08:45; Admin Dose 400 UNITS; Start 10/03/16 at 09:00 Calcium Carbonate (Tums) 500 mg BID PO Last administered on 10/03/16 20:00; Admin Dose 500 MG; Start 10/02/16 at 21:00 Acetaminophen (Tylenol Tab) 650 mg Q6H PRN PO PAIN AND OR ELEVATED TEMP; Start 10/03/16 at 10:00 Ketorolac Tromethamine (Toradol) 30 mg Q6 IV Last administered on 10/04/16 06: 15; Admin Dose 30 MG; Start 10/03/16 at 12:00; Stop 10/05/16 at 12:00 Hydromorphone HCl (Dilaudid) 0.5 mg Q3H PRN IV PAIN LEVEL 1-5; Start 10/03/16 at 11:30 Hydromorphone HCl (Dilaudid) 1 mg Q3H PRN IV SEVERE PAIN LEVEL 7-10; Start at 11:30 Ondansetron HCl (Zofran Inj) 4 mg Q4H PRN IV NAUSEA AND/OR VOMITING Last administered on 10/03/16 23:01; Admin Dose 4 MG; Start 10/03/16 at 16:30 Pantoprazole 40 mg 40 mg BID@06,18 PO Last administered on 10/03/16 20:00; Admin Dose 40 MG; Start 10/03/16 at 20:00 Potassium Chloride/Dextrose/ Sod Cl 1,000 ml @ 100 mls/hr Q10H IV ; Start 10/04 at 12:00; Status UNV Potassium Chloride (KCl 40 MEQ/250 ML NS) 250 ml @ 62.5 mls/hr ONCE ONCE IVPB ; Start 10/04/16 at 12:00; Stop 10/04/16 at 15:59; Status UNV Procedures Procedures PROCEDURE: XR Abdomen. CLINICAL INDICATION: Vomiting, nasogastric tube placement. TECHNIQUE: Supine AP view of the abdomen. COMPARISON: None. FINDINGS: A nasogastric tube terminates in the inferior esophagus. Recommend advancement. Gas in the left upper quadrant may lie within the stomach and/or colon. Additional gas is seen within nondilated colon and small bowel. No abnormal calcifications are identified. A left-sided double J ureteral stent is partially imaged. Skin marcos project over the abdominopelvic region. IMPRESSION: 1. Nasogastric tube tip in the distal esophagus. Recommend advancement. 2. Left upper quadrant gas, possibly within the stomach and/or colon. JT ALFARO Oct 04, 2016 12:09
[2016-10-04] MEDS ORDERED: POTASSIUM CHLORIDE 250 ML IVPB ONE (13:00)
[2016-10-04] MEDS: D5-NS + KCL 40 MEQ 1,000 ML IV SCH ×2 (14:00→23:00)
--- NOTE | 2016-10-04 14:09 | PN ---
Date/Time of Note Date/Time of Note DATE: 10/04/16 TIME: 14:08 Assessment/Plan VTE Prophylaxis VTE Prophylaxis Intervention: SCD's Lines/Catheters IV Catheter Type (from [facility]): Peripheral IV Urinary Cath still in place: Yes (URINE IS YELLOW BUT BLUE TINGED) Reason Cath still needed: other (indicate) (ureteral repair) Assessment/Plan Chief Complaint/Hosp Course s/p lap converted to open sigmoidectomy and LAR with ureteral injury and intraoperative repair Problems: Assessment/Plan patient intolerant of NGT dc NGT NPO Subjective 24 Hr Interval Summary Free Text/Dictation patient had some emesis overnight and NGT placed. however patient is unable to tolerated NGT. Exam/Review of Systems Vital Signs Vitals Vital Signs Date Time Temp Pulse Resp B/P Pulse Ox O2 Delivery O2 Flow Rate FiO2 10/04/16 07:00 98.6 93 20 131/72 97 10/03/16 20:15 Nasal Cannula 4.0 Intake and Output 10/03/16 10/03/16 10/04/16 15:00 23:00 07:00 Intake Total 900 ml 1700 ml 700 ml Output Total 40 ml 1260 ml 2850 ml Balance 860 ml 440 ml -2150 ml Exam abd soft c/d/i Results Result Diagram: 10/04/16 0420 10/04/16 0420 Results 24 hrs Laboratory Tests Test 10/04/16 04:20 White Blood Count 10.1 Red Blood Count 3.56 L Hemoglobin 10.4 L Hematocrit 32.5 L Mean Corpuscular Volume 91.3 Mean Corpuscular Hemoglobin 29.2 Mean Corpuscular Hemoglobin Concent 32.0 Red Cell Distribution Width 13.1 Platelet Count 367 Mean Platelet Volume 9.3 Neutrophils % 85.9 H Lymphocytes % 8.8 L Monocytes % 4.3 Eosinophils % 0.5 Basophils % 0.2 Nucleated Red Blood Cells % 0.0 Neutrophils # 8.7 H Lymphocytes # 0.9 Monocytes # 0.4 Eosinophils # 0.1 Basophils # 0.0 Nucleated Red Blood Cells # 0.0 Sodium Level 143 Potassium Level 3.1 L Chloride Level 100 Carbon Dioxide Level 35 H Anion Gap 11 Blood Urea Nitrogen 13 Creatinine 0.57 Glucose Level 155 Calcium Level 8.2 L Phosphorus Level 3.4 Magnesium Level 2.1 Total Bilirubin 0.4 Direct Bilirubin 0.00 Indirect Bilirubin 0.4 Aspartate Amino Transf (AST/SGOT) 23 Alanine Aminotransferase (ALT/SGPT) 30 Alkaline Phosphatase 52 Total Protein 5.1 L Albumin 2.6 L Globulin 2.50 Albumin/Globulin Ratio 1.04 Medications Medications Current Medications Metronidazole (Flagyl 500 Mg (Pmx)) 100 ml @ 100 mls/hr Q8H IVPB Last administered on 10/04/16 13:59; Admin Dose 100 MLS/HR; Start 09/30/16 at 21:00 Naloxone HCl 0.2 mg 0.2 mg Q2M PRN IV RR 8 BREATHS/MIN OR LESS; Start 09/30/16 at 21:00 Ampicillin Sodium/ Sulbactam Sodium (Unasyn 3gm/NS (Pmx)) 100 ml @ 100 mls/hr Q6 IVPB Last administered on 10/04/16 11:34; Admin Dose 100 MLS/HR; Start 05/09 at 00:00 Diphenhydramine HCl (Benadryl) 25 mg Q6H PRN PO ITCHING Last administered on 22:16; Admin Dose 25 MG; Start 10/01/16 at 22:00 Atorvastatin Calcium (Lipitor) 20 mg QHS PO Last administered on 10/03/16 20: 00; Admin Dose 20 MG; Start 10/02/16 at 21:00 Escitalopram Oxalate (Lexapro) 10 mg DAILY PO Last administered on 10/03/16 08 :45; Admin Dose 10 MG; Start 10/02/16 at 11:30 Cholecalciferol (Vitamin D) 400 units DAILY PO Last administered on 10/03/16 08:45; Admin Dose 400 UNITS; Start 10/03/16 at 09:00 Calcium Carbonate (Tums) 500 mg BID PO Last administered on 10/03/16 20:00; Admin Dose 500 MG; Start 10/02/16 at 21:00 Acetaminophen (Tylenol Tab) 650 mg Q6H PRN PO PAIN AND OR ELEVATED TEMP; Start 10/03/16 at 10:00 Ketorolac Tromethamine (Toradol) 30 mg Q6 IV Last administered on 10/04/16 06: 15; Admin Dose 30 MG; Start 10/03/16 at 12:00; Stop 10/05/16 at 12:00 Hydromorphone HCl (Dilaudid) 0.5 mg Q3H PRN IV PAIN LEVEL 1-5; Start 10/03/16 at 11:30 Hydromorphone HCl (Dilaudid) 1 mg Q3H PRN IV SEVERE PAIN LEVEL 7-10; Start at 11:30 Ondansetron HCl (Zofran Inj) 4 mg Q4H PRN IV NAUSEA AND/OR VOMITING Last administered on 10/03/16 23:01; Admin Dose 4 MG; Start 10/03/16 at 16:30 Pantoprazole 40 mg 40 mg BID@06,18 PO Last administered on 10/03/16 20:00; Admin Dose 40 MG; Start 10/03/16 at 20:00 Potassium Chloride/Dextrose/ Sod Cl 1,000 ml @ 100 mls/hr Q10H IV Last administered on 10/04/16 14:00; Admin Dose 100 MLS/HR; Start 10/04/16 at 13:00 Potassium Chloride (KCl 40 MEQ/250 ML NS) 250 ml @ 62.5 mls/hr ONCE ONCE IVPB Last administered on 10/04/16 14:03; Admin Dose 62.5 MLS/HR; Start 10/04/16 at 13:00; Stop 10/04/16 at 16:59 Lokesh ROMAN Oct 04, 2016 14:09
[2016-10-04 19:45] VITALS: BP 124/71; RESP 20
[2016-10-04 19:59] VITALS: BP 129/62; PULSE 88; RESP 22
[2016-10-04] MEDS: ATORVASTATIN 20 MG TAB PO SCH (21:00)
[2016-10-05] MEDS: AMPICILLIN/SULB 3 GM/NS (PMX) 100 ML IVPB SCH ×4 (02:02→17:38)
[2016-10-05 05:37] LABS: ADD SCAN DIFF NO
[2016-10-05 05:41] LABS: BASOPHILS % 0.2 % (0.0-2.0); EOSINOPHILS # 0.2 10^3/ul (0.0-0.5); EOSINOPHILS % 2.2 % (0.0-7.0); HEMATOCRIT 27.9 % (37.0-47.0); HEMOGLOBIN 8.7 g/dl (12.0-16.0); LYMPHOCYTES # 1.4 10^3/ul (0.8-2.9); LYMPHOCYTES % 17.6 % (15.0-51.0); MEAN CORPUSCULAR HEMOGLOBIN 29.1 pg (29.0-33.0); MEAN CORPUSCULAR HGB CONC 31.2 g/dl (32.0-37.0); MEAN CORPUSCULAR VOLUME 93.3 fl (82.0-101.0); MEAN PLATELET VOLUME 9.3 fl (7.4-10.4); MONOCYTE # 0.6 10^3/ul (0.3-0.9); MONOCYTES % 6.8 % (0.0-11.0); NEUTROPHIL # 5.9 10^3/ul (1.6-7.5); NEUTROPHILS % 72.7 % (39.0-77.0); PLATELET COUNT 368 10^3/UL (140-415); RED BLOOD COUNT 2.99 10^6/ul (4.20-5.40); RED CELL DISTRIBUTION WIDTH 13.2 % (11.5-14.5); WHITE BLOOD COUNT 8.1 10^3/ul (4.8-10.8)
[2016-10-05] MEDS: metroNIDAZOLE 500 MG/NS (PMX) 100 ML IVPB SCH ×3 (05:46→21:15)
[2016-10-05] MEDS: KETOROLAC 30 MG INJ IV SCH ×3 (06:00→11:39)
[2016-10-05] MEDS: PANTOPRAZOLE (EC) 40 MG TAB PO SCH ×2 (06:00→17:36)
[2016-10-05 06:02] LABS: ALBUMIN 2.3 g/dl (3.3-4.9)
[2016-10-05 06:03] LABS: POTASSIUM 3.5 mmol/L (3.5-5.1)
[2016-10-05 06:05] LABS: ALBUMIN/GLOBULIN RATIO 0.95; BILIRUBIN,INDIRECT 0.3 mg/dl (0-1.1); BILIRUBIN,TOTAL 0.3 mg/dl (0.2-1.3); CREATININE 0.47 mg/dl (0.44-1.00); TOTAL PROTEIN 4.7 g/dl (6.1-8.1)
[2016-10-05 06:06] LABS: CALCIUM 7.4 mg/dl (8.4-10.2)
[2016-10-05 06:33] LABS: PHOSPHORUS 2.3 mg/dl (2.5-4.9)
[2016-10-05 07:43] VITALS: BP 120/61; RESP 18
[2016-10-05] MEDS: CHOLECALCIFEROL 400 UNITS TAB PO SCH (09:00)
[2016-10-05] MEDS: ESCITALOPRAM 10 MG TAB PO SCH (09:00)
[2016-10-05] MEDS: CALCIUM CARBONATE 500 MG CHEW TAB PO SCH ×2 (09:00→21:00)
[2016-10-05] MEDS: D5-NS + KCL 40 MEQ 1,000 ML IV SCH (09:36)
--- NOTE | 2016-10-05 10:47 | PN ---
DATE: 10/05/2016 SUBJECTIVE: The patient states that she is comfortable today. She has not been even taking the lisette n medications. She denies any nausea or vomiting. OBJECTIVE: VITAL SIGNS: Her temperature is 98.6, blood pressure 120/61, pulse is 82, respirations 18. ABDOMEN: Soft, is not distended. The incision is clean. The SACHIN drain is draining well. In fact, the SACHIN drain did drain about 90 mL in the last shift, 310 mL yesterday. The urine output is 1700 mL . LABORATORY DATA: Her CBC shows a white count of 8.1, hemoglobin 8.7, hematocrit 27.9. The BUN is 1 1, creatinine 0.47, sodium 146, potassium 3.5, chloride 111, CO2 of 28. Urine culture no growth aft er 24 hours. IMPRESSION: The patient is status post colon resection and left ureteroureterostomy secondary to ur eteral injury and insertion of a JJ stent. The patient was having problems with nausea yesterday an d had an NG tube which she did not tolerate, but she is doing better today. PLAN: Is to keep the Ramos catheter in. She could ambulate. Once her gastrointestinal issues are stable and there is no nausea or vomiting and she moves her bowels, then I could discontinue the Fol ey catheter and hopefully she will be able to urinate well without causing urine to reflux much into her kidney. Dictated By: AMANDA SCHWARTZ/EUGENE Conf#: [id number] DID#: [id number]
--- NOTE | 2016-10-05 13:18 | PN ---
Date/Time of Note Date/Time of Note DATE: 10/05/16 TIME: 13:14 Assessment/Plan VTE Prophylaxis VTE Prophylaxis Intervention: SCD's Lines/Catheters IV Catheter Type (from Nrsg): Peripheral IV Urinary Cath still in place: Yes Reason Cath still needed: other (indicate) (per urologist) Assessment/Plan Assessment/Plan [facility] 1. 61-year-old woman who is now post-op day 4 s/p laparoscopic sigmoidectomy and LAR with ureteral injury and intraoperative repair. Feeling better overall, with no nausea or emesis now. She was up walking comfortably this morning. * Still NPO, per Dr. Gar * Encourage ambulation and Incentive spirometer use 2. Depression, on Lexapro 3. Hyperlipidemia: back on Lipitor 4. GERD: on Protonix 5. Hypokalemia: repleting as needed 6. Prophylaxis: SCDs and PPI 7. Disposition: Advance diet per Gen Surgery and Urology Ruy Redd MD PhD [phone] Subjective 24 Hr Interval Summary Free Text/Dictation No visitors this morning. Small loose stool last night, lots of flatus passed this morning. No abdominal pain, but a sense of pressure. Exam/Review of Systems Vital Signs Vitals Vital Signs Date Time Temp Pulse Resp B/P Pulse Ox O2 Delivery O2 Flow Rate FiO2 10/05/16 07:43 98.6 82 18 120/61 95 10/04/16 19:59 Room Air 10/04/16 08:00 2.0 Intake and Output 10/04/16 10/04/16 10/05/16 14:59 22:59 06:59 Intake Total 850 ml 750 ml 700 ml Output Total 650 ml 730 ml 1280 ml Balance 200 ml 20 ml -580 ml Exam Constitutional: alert, oriented, well developed, cheerful Respiratory: clear to auscultation, normal air movement Cardiovascular: Symmetric pulses, regular rhythm and normal rate. Gastrointestinal: non-tender, soft, bowel sounds positive Musculoskeletal: nl extremities to inspection, with no edema, clubbing or cyanosis. 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 Downgoing toes. Results Result Diagram: 10/05/16 0439 10/05/16 0439 Results 24 hrs Laboratory Tests Test 10/05/16 04:39 White Blood Count 8.1 Red Blood Count 2.99 L Hemoglobin 8.7 L Hematocrit 27.9 L Mean Corpuscular Volume 93.3 Mean Corpuscular Hemoglobin 29.1 Mean Corpuscular Hemoglobin Concent 31.2 L Red Cell Distribution Width 13.2 Platelet Count 368 Mean Platelet Volume 9.3 Neutrophils % 72.7 Lymphocytes % 17.6 Monocytes % 6.8 Eosinophils % 2.2 Basophils % 0.2 Nucleated Red Blood Cells % 0.0 Neutrophils # 5.9 Lymphocytes # 1.4 Monocytes # 0.6 Eosinophils # 0.2 Basophils # 0.0 Nucleated Red Blood Cells # 0.0 Sodium Level 146 H Potassium Level 3.5 Chloride Level 111 H Carbon Dioxide Level 28 Anion Gap 11 Blood Urea Nitrogen 11 Creatinine 0.47 Glucose Level 122 Calcium Level 7.4 L Phosphorus Level 2.3 #L Magnesium Level 2.0 Total Bilirubin 0.3 Direct Bilirubin 0.00 Indirect Bilirubin 0.3 Aspartate Amino Transf (AST/SGOT) 20 Alanine Aminotransferase (ALT/SGPT) 30 Alkaline Phosphatase 43 Total Protein 4.7 L Albumin 2.3 L Globulin 2.40 Albumin/Globulin Ratio 0.95 Medications Medications Current Medications Metronidazole (Flagyl 500 Mg (Pmx)) 100 ml @ 100 mls/hr Q8H IVPB Last administered on 10/05/16 12:26; Admin Dose 100 MLS/HR; Start 09/30/16 at 21:00 Naloxone HCl 0.2 mg 0.2 mg Q2M PRN IV RR 8 BREATHS/MIN OR LESS; Start 09/30/16 at 21:00 Ampicillin Sodium/ Sulbactam Sodium (Unasyn 3gm/NS (Pmx)) 100 ml @ 100 mls/hr Q6 IVPB Last administered on 10/05/16 11:49; Admin Dose 100 MLS/HR; Start 05/09 at 00:00 Diphenhydramine HCl (Benadryl) 25 mg Q6H PRN PO ITCHING Last administered on 22:16; Admin Dose 25 MG; Start 10/01/16 at 22:00 Atorvastatin Calcium (Lipitor) 20 mg QHS PO Last administered on 10/03/16 20: 00; Admin Dose 20 MG; Start 10/02/16 at 21:00 Escitalopram Oxalate (Lexapro) 10 mg DAILY PO Last administered on 10/03/16 08 :45; Admin Dose 10 MG; Start 10/02/16 at 11:30 Cholecalciferol (Vitamin D) 400 units DAILY PO Last administered on 10/03/16 08:45; Admin Dose 400 UNITS; Start 10/03/16 at 09:00 Calcium Carbonate (Tums) 500 mg BID PO Last administered on 10/03/16 20:00; Admin Dose 500 MG; Start 10/02/16 at 21:00 Acetaminophen (Tylenol Tab) 650 mg Q6H PRN PO PAIN AND OR ELEVATED TEMP; Start 10/03/16 at 10:00 Hydromorphone HCl (Dilaudid) 0.5 mg Q3H PRN IV PAIN LEVEL 1-5; Start 10/03/16 at 11:30 Hydromorphone HCl (Dilaudid) 1 mg Q3H PRN IV SEVERE PAIN LEVEL 7-10; Start at 11:30 Ondansetron HCl (Zofran Inj) 4 mg Q4H PRN IV NAUSEA AND/OR VOMITING Last administered on 10/03/16 23:01; Admin Dose 4 MG; Start 10/03/16 at 16:30 Pantoprazole 40 mg 40 mg BID@06,18 PO Last administered on 10/03/16 20:00; Admin Dose 40 MG; Start 10/03/16 at 20:00 Potassium Chloride/Dextrose/ Sod Cl (D5-NS + KCl 40 Meq) 1,000 ml @ 100 mls/hr Q10H IV Last administered on 10/05/16 09:36; Admin Dose 100 MLS/HR; Start at 13:00 FAIZAN REDD M.D. Oct 05, 2016 13:18
[2016-10-05] MEDS: L ACIDOPHIL/B LACTIS/B LONGUM CAPSULE PO SCH ×2 (14:00→21:00)
--- NOTE | 2016-10-05 20:07 | PN ---
DATE: Status post laparotomy and low anterior resection for unresectable rectal polyp and intraoperative l eft ureteral injury. SUBJECTIVE: No complaint today. Has been out of bed, walking around a little bit. Has been passin g gas; no bowel movement - minimal last night. No nausea, no vomiting. OBJECTIVE GENERAL: Alert, awake, oriented x3, lying down in the bed, comfortable. VITAL SIGNS: Temperature 98.6, heart rate 82, respirations 18, blood pressure 120/61, saturation 95 % on room air. ABDOMEN: Soft, not distended. Mild tenderness. Bowel sounds are present but not very well, is pro bably 2+/4+. EXTREMITIES: Legs no calf tenderness. LABORATORIES: WBC 8,100, normal; hemoglobin 8.7, hematocrit 27.9; neutrophils 72%, platelets 368. Chemistry: Phosphorus a little bit low at 2.3. Calcium 7.4, low. Sodium 146, chloride 111, potass ium 3.5. Protein total 4.7, albumin 2.3. The patient has been managed also by primary care physici an for electrolyte correction. ASSESSMENT AND PLAN: The patient is postoperative day #5, is status post laparotomy and low anterio r resection of the colorectum. The patient is stable so far and doing fine. Has been passing gas. Minimal bowel movement; no nausea, no vomiting, no fever. Vital signs are stable. Clemente-Adames i s draining serosanguineous fluid. PLAN: Keep the patient n.p.o. at least tonight; by tomorrow, we will make a decision as to start th e patient on clear liquids or not. Dictated By: MAXIMILIANO STOUT/EUGENE Conf#: [id number] DID#: [id number]
[2016-10-05 20:38] VITALS: BP 131/68; RESP 20
[2016-10-05] MEDS: ATORVASTATIN 20 MG TAB PO SCH (21:00)
[2016-10-05] MEDS: ONDANSETRON 4 MG INJ IV PRN (23:01)
[2016-10-06] MEDS: D5-NS + KCL 40 MEQ 1,000 ML IV SCH ×4 (00:30→23:53)
[2016-10-06] MEDS: AMPICILLIN/SULB 3 GM/NS (PMX) 100 ML IVPB SCH ×5 (00:33→23:52)
[2016-10-06 05:23] LABS: ADD SCAN DIFF NO
[2016-10-06] MEDS: metroNIDAZOLE 500 MG/NS (PMX) 100 ML IVPB SCH ×3 (05:28→21:13)
[2016-10-06 05:34] LABS: ALBUMIN 2.3 g/dl (3.3-4.9); BILIRUBIN,INDIRECT 0.1 mg/dl (0-1.1); BILIRUBIN,TOTAL 0.1 mg/dl (0.2-1.3); CALCIUM 7.4 mg/dl (8.4-10.2); CREATININE 0.44 mg/dl (0.44-1.00); TOTAL PROTEIN 4.6 g/dl (6.1-8.1)
[2016-10-06 05:51] LABS: BASOPHILS % 0.5 % (0.0-2.0); EOSINOPHILS # 0.3 10^3/ul (0.0-0.5); HEMATOCRIT 27.8 % (37.0-47.0); HEMOGLOBIN 8.6 g/dl (12.0-16.0); LYMPHOCYTES # 2.2 10^3/ul (0.8-2.9); MEAN CORPUSCULAR HEMOGLOBIN 28.9 pg (29.0-33.0); MEAN CORPUSCULAR HGB CONC 30.9 g/dl (32.0-37.0); MEAN CORPUSCULAR VOLUME 93.3 fl (82.0-101.0); MEAN PLATELET VOLUME 9.3 fl (7.4-10.4); MONOCYTE # 0.6 10^3/ul (0.3-0.9); MONOCYTES % 7.6 % (0.0-11.0); NEUTROPHILS % 60.5 % (39.0-77.0); PLATELET COUNT 387 10^3/UL (140-415); RED BLOOD COUNT 2.98 10^6/ul (4.20-5.40); RED CELL DISTRIBUTION WIDTH 13.4 % (11.5-14.5); WHITE BLOOD COUNT 8.3 10^3/ul (4.8-10.8)
[2016-10-06] MEDS: PANTOPRAZOLE (EC) 40 MG TAB PO SCH ×2 (06:00→18:44)
[2016-10-06 08:06] VITALS: BP 122/58; RESP 15
[2016-10-06] MEDS: CALCIUM CARBONATE 500 MG CHEW TAB PO SCH ×2 (09:00→21:06)
[2016-10-06] MEDS: ESCITALOPRAM 10 MG TAB PO SCH (09:00)
[2016-10-06] MEDS: CHOLECALCIFEROL 400 UNITS TAB PO SCH (09:00)
[2016-10-06] MEDS: L ACIDOPHIL/B LACTIS/B LONGUM CAPSULE PO SCH ×2 (09:00→21:06)
--- NOTE | 2016-10-06 11:23 | PN ---
DATE: 10/06/2016 SUBJECTIVE: The patient did have a little nausea yesterday, states that she is passing gas, no vomi ting, and very minimal pain. OBJECTIVE VITAL SIGNS: Her temperature is 98.9, pulse is 90, respiration 15, blood pressure 122/58. ABDOMEN: Soft, and the incision is covered with a dressing that is dry. The SACHIN drain is draining s erous fluid, and the 24 hour SACHIN drain is about 300 mL. Ramos catheter is draining clear urine, and the patient does have a good urine output. In fact, she did have about 2500 mL of urine output in 2 4 hours. LABORATORY DATA: Urine culture showed no growth after 48 hours. CBC shows a white count of 8.3, he moglobin 8.6, hematocrit 27.8. BUN is 6, creatinine 0.44. Electrolytes: Sodium 140, potassium 4.0 , chloride 111, CO2 27. IMPRESSION: Status post bowel resection and left ureteroureterostomy and the insertion of a left ur eteral JJ stent. The patient clinically is doing well. She still needs to be started on a diet, an d that could be decided by the general surgery team. As far as urology, we will just keep the Ramos catheter in and monitor her renal function and urine output and SACHIN drain volume. Dictated By: AMANDA SCHWARTZ/EUGENE Conf#: [id number] DID#: [id number]
--- NOTE | 2016-10-06 18:15 | PN ---
DATE: Postop day #6. SUBJECTIVE: Feels better, feels hungry, has passed some gas. No nausea, no vomiting. Has been out of bed and walked around a couple of times. OBJECTIVE VITAL SIGNS: Temperature 98.9, heart rate 90, respirations 15, blood pressure 120/70, saturation 96% on room air. LABORATORY: WBC 8300, hemoglobin 8.6, hematocrit 27.8. Differential is 60% neutrophils. Chemistry: Sodium, potassium, normal BUN and creatinine, normal. Albumin is 2.3. Protein total is 4.6 low. PHYSICAL: Abdomen is soft, bowel sounds present. Dressing is intact. Clemente- Adames drain has been draining a little bit since morning. Now it is 2:00, for 8 hours has drained about 170 mL serosanguineous fluid. In the past 24 hours it drained 300 mL of serosanguineous fluid. Appears that the drainage from Clemente- Adames is increasing. Ramos catheter is in place. PLAN: Continue current care. Keep the Ramos catheter until Dr. Ramos orders otherwise. Will start patient on clear liquid. Dictated By: MAXIMILIANO BLANKENSHIP MD PS/NTS Conf#: [id number] DID#: [id number] MTDD
[2016-10-06 19:29] VITALS: BP 124/69; RESP 16
--- NOTE | 2016-10-06 20:18 | PN ---
Date/Time of Note Date/Time of Note DATE: 10/06/16 TIME: 20:17 Assessment/Plan VTE Prophylaxis VTE Prophylaxis Intervention: SCD's Lines/Catheters IV Catheter Type (from Nrsg): Peripheral IV Urinary Cath still in place: Yes Reason Cath still needed: other (indicate) (per dr. purdy) Assessment/Plan Assessment/Plan [facility] 1. Young-appearing 61-year-old woman who is now post-op day 5 s/p laparoscopic sigmoidectomy and LAR with ureteral injury and intraoperative repair. Continued improvement, with onlyl mild nausea last night but no emesis now. She was up walking comfortably again this morning. Continued drainage. * Advanced to clear liquids, per Dr. Ortega. * Encourage ambulation and Incentive spirometer use 2. Depression, on Lexapro 3. Hyperlipidemia, on Lipitor 4. GERD, on Protonix 5. Hypokalemia, replaced as needed 6. Prophylaxis: SCDs and PPI 7. Disposition: Advance diet per Gen Surgery and Urology Ruy Redd MD PhD [phone] Subjective 24 Hr Interval Summary Free Text/Dictation No visitors. Comfortable-appearing. Up walking. Mild nausea last night. No dyspnea or headache. Passing flatus, but no bowel movement. Exam/Review of Systems Vital Signs Vitals Vital Signs Date Time Temp Pulse Resp B/P Pulse Ox O2 Delivery O2 Flow Rate FiO2 10/06/16 19:29 98.6 77 16 124/69 94 10/04/16 19:59 Room Air 10/04/16 08:00 2.0 Intake and Output 10/05/16 10/05/16 10/06/16 15:00 23:00 07:00 Intake Total 500 ml 900 ml 950 ml Output Total 160 ml 1470 ml 1170 ml Balance 340 ml -570 ml -220 ml Exam Constitutional: alert, friendly. Respiratory: clear to auscultation, normal air movement Cardiovascular: Symmetric pulses, regular rhythm and normal rate. Gastrointestinal: non-tender, soft, bowel sounds positive Musculoskeletal: nl extremities to inspection, with no edema, clubbing or cyanosis. 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 Downgoing toes. Results Result Diagram: 10/06/16 0456 10/06/16 0436 Results 24 hrs Laboratory Tests Test 10/06/16 04:36 10/06/16 04:56 Sodium Level 140 Potassium Level 4.0 Chloride Level 111 H Carbon Dioxide Level 27 Anion Gap 6 L Blood Urea Nitrogen 6 L Creatinine 0.44 Glucose Level 120 Calcium Level 7.4 L Total Bilirubin 0.1 L Direct Bilirubin 0.00 Indirect Bilirubin 0.1 Aspartate Amino Transf (AST/SGOT) 27 Alanine Aminotransferase (ALT/SGPT) 34 Alkaline Phosphatase 43 Total Protein 4.6 L Albumin 2.3 L Globulin 2.30 Albumin/Globulin Ratio 1.00 White Blood Count 8.3 Red Blood Count 2.98 L Hemoglobin 8.6 L Hematocrit 27.8 L Mean Corpuscular Volume 93.3 Mean Corpuscular Hemoglobin 28.9 L Mean Corpuscular Hemoglobin Concent 30.9 L Red Cell Distribution Width 13.4 Platelet Count 387 Mean Platelet Volume 9.3 Neutrophils % 60.5 Lymphocytes % 27.0 Monocytes % 7.6 Eosinophils % 4.0 Basophils % 0.5 Nucleated Red Blood Cells % 0.0 Neutrophils # 5.0 Lymphocytes # 2.2 Monocytes # 0.6 Eosinophils # 0.3 Basophils # 0.0 Nucleated Red Blood Cells # 0.0 Medications Medications Current Medications Metronidazole (Flagyl 500 Mg (Pmx)) 100 ml @ 100 mls/hr Q8H IVPB Last administered on 10/06/16 13:11; Admin Dose 100 MLS/HR; Start 09/30/16 at 21:00 Naloxone HCl 0.2 mg 0.2 mg Q2M PRN IV RR 8 BREATHS/MIN OR LESS; Start 09/30/16 at 21:00 Ampicillin Sodium/ Sulbactam Sodium (Unasyn 3gm/NS (Pmx)) 100 ml @ 100 mls/hr Q6 IVPB Last administered on 10/06/16 17:32; Admin Dose 100 MLS/HR; Start 05/09 at 00:00 Diphenhydramine HCl (Benadryl) 25 mg Q6H PRN PO ITCHING Last administered on 22:16; Admin Dose 25 MG; Start 10/01/16 at 22:00 Atorvastatin Calcium (Lipitor) 20 mg QHS PO Last administered on 10/03/16 20: 00; Admin Dose 20 MG; Start 10/02/16 at 21:00 Escitalopram Oxalate (Lexapro) 10 mg DAILY PO Last administered on 10/03/16 08 :45; Admin Dose 10 MG; Start 10/02/16 at 11:30 Cholecalciferol (Vitamin D) 400 units DAILY PO Last administered on 10/03/16 08:45; Admin Dose 400 UNITS; Start 10/03/16 at 09:00 Calcium Carbonate (Tums) 500 mg BID PO Last administered on 10/03/16 20:00; Admin Dose 500 MG; Start 10/02/16 at 21:00 Acetaminophen (Tylenol Tab) 650 mg Q6H PRN PO PAIN AND OR ELEVATED TEMP; Start 10/03/16 at 10:00 Hydromorphone HCl (Dilaudid) 0.5 mg Q3H PRN IV PAIN LEVEL 1-5; Start 10/03/16 at 11:30 Hydromorphone HCl (Dilaudid) 1 mg Q3H PRN IV SEVERE PAIN LEVEL 7-10; Start at 11:30 Ondansetron HCl (Zofran Inj) 4 mg Q4H PRN IV NAUSEA AND/OR VOMITING Last administered on 10/05/16 23:01; Admin Dose 4 MG; Start 10/03/16 at 16:30 Pantoprazole 40 mg 40 mg BID@06,18 PO Last administered on 10/06/16 18:44; Admin Dose 40 MG; Start 10/03/16 at 20:00 Potassium Chloride/Dextrose/ Sod Cl (D5-NS + KCl 40 Meq) 1,000 ml @ 100 mls/hr Q10H IV Last administered on 10/06/16 09:04; Admin Dose 100 MLS/HR; Start at 13:00 Lactobacillus Acidophilus (Florajen3 Capsule) 1 each BID PO ; Start 10/05/16 at 14:00 FAIZAN REDD M.D. Oct 06, 2016 20:17
[2016-10-06] MEDS: ATORVASTATIN 20 MG TAB PO SCH (21:06)
[2016-10-07 05:03] LABS: ADD SCAN DIFF NO
[2016-10-07 05:15] LABS: BASOPHILS % 0.4 % (0.0-2.0); EOSINOPHILS # 0.3 10^3/ul (0.0-0.5); EOSINOPHILS % 3.3 % (0.0-7.0); HEMATOCRIT 30.5 % (37.0-47.0); HEMOGLOBIN 9.8 g/dl (12.0-16.0); LYMPHOCYTES # 2.5 10^3/ul (0.8-2.9); MEAN CORPUSCULAR HEMOGLOBIN 29.5 pg (29.0-33.0); MEAN CORPUSCULAR HGB CONC 32.1 g/dl (32.0-37.0); MEAN CORPUSCULAR VOLUME 91.9 fl (82.0-101.0); MEAN PLATELET VOLUME 9.2 fl (7.4-10.4); MONOCYTE # 0.6 10^3/ul (0.3-0.9); MONOCYTES % 6.5 % (0.0-11.0); NEUTROPHIL # 6.1 10^3/ul (1.6-7.5); NEUTROPHILS % 63.2 % (39.0-77.0); PLATELET COUNT 486 10^3/UL (140-415); RED BLOOD COUNT 3.32 10^6/ul (4.20-5.40); RED CELL DISTRIBUTION WIDTH 13.2 % (11.5-14.5); WHITE BLOOD COUNT 9.7 10^3/ul (4.8-10.8)
[2016-10-07] MEDS: metroNIDAZOLE 500 MG/NS (PMX) 100 ML IVPB SCH (05:24)
[2016-10-07 05:31] LABS: ALBUMIN 2.6 g/dl (3.3-4.9)
[2016-10-07 05:34] LABS: ALBUMIN/GLOBULIN RATIO 1.13; BILIRUBIN,INDIRECT 0.3 mg/dl (0-1.1); BILIRUBIN,TOTAL 0.3 mg/dl (0.2-1.3); CALCIUM 8.2 mg/dl (8.4-10.2); CREATININE 0.49 mg/dl (0.44-1.00); TOTAL PROTEIN 4.9 g/dl (6.1-8.1)
[2016-10-07] MEDS: PANTOPRAZOLE (EC) 40 MG TAB PO SCH ×2 (06:31→17:57)
[2016-10-07] MEDS: AMPICILLIN/SULB 3 GM/NS (PMX) 100 ML IVPB SCH (06:31)
[2016-10-07 07:42] VITALS: BP 125/71; RESP 18
--- NOTE | 2016-10-07 09:08 | PN ---
Date/Time of Note Date/Time of Note DATE: 10/07/16 TIME: 09:08 Assessment/Plan VTE Prophylaxis VTE Prophylaxis Intervention: SCD's Lines/Catheters Urinary Cath still in place: Yes Reason Cath still needed: other (indicate) Assessment/Plan Chief Complaint/Hosp Course s/p lap converted to open sigmoidectomy and LAR with ureteral injury and intraoperative repair Problems: Assessment/Plan will start gi soft diet Subjective 24 Hr Interval Summary Free Text/Dictation doing well, no major, issues, had small bm Exam/Review of Systems Vital Signs Vitals Vital Signs Date Time Temp Pulse Resp B/P Pulse Ox O2 Delivery O2 Flow Rate FiO2 10/07/16 07:42 98.3 76 18 125/71 96 10/04/16 19:59 Room Air 10/04/16 08:00 2.0 Intake and Output 10/06/16 10/06/16 10/07/16 15:00 23:00 07:00 Intake Total 750 ml 1000 ml 1200 ml Output Total 180 ml 1690 ml 2070 ml Balance 570 ml -690 ml -870 ml Exam c/d/i Results Result Diagram: 10/07/16 0420 10/07/16 0420 Results 24 hrs Laboratory Tests Test 10/07/16 04:20 White Blood Count 9.7 Red Blood Count 3.32 L Hemoglobin 9.8 L Hematocrit 30.5 L Mean Corpuscular Volume 91.9 Mean Corpuscular Hemoglobin 29.5 Mean Corpuscular Hemoglobin Concent 32.1 Red Cell Distribution Width 13.2 Platelet Count 486 #H Mean Platelet Volume 9.2 Neutrophils % 63.2 Lymphocytes % 26.0 Monocytes % 6.5 Eosinophils % 3.3 Basophils % 0.4 Nucleated Red Blood Cells % 0.0 Neutrophils # 6.1 Lymphocytes # 2.5 Monocytes # 0.6 Eosinophils # 0.3 Basophils # 0.0 Nucleated Red Blood Cells # 0.0 Sodium Level 141 Potassium Level 4.0 Chloride Level 106 Carbon Dioxide Level 28 Anion Gap 11 Blood Urea Nitrogen 4 L Creatinine 0.49 Glucose Level 122 Calcium Level 8.2 L Total Bilirubin 0.3 Direct Bilirubin 0.00 Indirect Bilirubin 0.3 Aspartate Amino Transf (AST/SGOT) 50 H Alanine Aminotransferase (ALT/SGPT) 43 Alkaline Phosphatase 50 Total Protein 4.9 L Albumin 2.6 L Globulin 2.30 Albumin/Globulin Ratio 1.13 Medications Medications Current Medications Metronidazole (Flagyl 500 Mg (Pmx)) 100 ml @ 100 mls/hr Q8H IVPB Last administered on 10/07/16 05:24; Admin Dose 100 MLS/HR; Start 09/30/16 at 21:00 Naloxone HCl 0.2 mg 0.2 mg Q2M PRN IV RR 8 BREATHS/MIN OR LESS; Start 09/30/16 at 21:00 Ampicillin Sodium/ Sulbactam Sodium (Unasyn 3gm/NS (Pmx)) 100 ml @ 100 mls/hr Q6 IVPB Last administered on 10/07/16 06:31; Admin Dose 100 MLS/HR; Start 05/09 at 00:00 Diphenhydramine HCl (Benadryl) 25 mg Q6H PRN PO ITCHING Last administered on 22:16; Admin Dose 25 MG; Start 10/01/16 at 22:00 Atorvastatin Calcium (Lipitor) 20 mg QHS PO Last administered on 10/06/16 21: 06; Admin Dose 20 MG; Start 10/02/16 at 21:00 Escitalopram Oxalate (Lexapro) 10 mg DAILY PO Last administered on 10/03/16 08 :45; Admin Dose 10 MG; Start 10/02/16 at 11:30 Cholecalciferol (Vitamin D) 400 units DAILY PO Last administered on 10/03/16 08:45; Admin Dose 400 UNITS; Start 10/03/16 at 09:00 Calcium Carbonate (Tums) 500 mg BID PO Last administered on 10/06/16 21:06; Admin Dose 500 MG; Start 10/02/16 at 21:00 Acetaminophen (Tylenol Tab) 650 mg Q6H PRN PO PAIN AND OR ELEVATED TEMP; Start 10/03/16 at 10:00 Hydromorphone HCl (Dilaudid) 0.5 mg Q3H PRN IV PAIN LEVEL 1-5; Start 10/03/16 at 11:30 Hydromorphone HCl (Dilaudid) 1 mg Q3H PRN IV SEVERE PAIN LEVEL 7-10; Start at 11:30 Ondansetron HCl (Zofran Inj) 4 mg Q4H PRN IV NAUSEA AND/OR VOMITING Last administered on 10/05/16 23:01; Admin Dose 4 MG; Start 10/03/16 at 16:30 Pantoprazole 40 mg 40 mg BID@06,18 PO Last administered on 10/07/16 06:31; Admin Dose 40 MG; Start 10/03/16 at 20:00 Potassium Chloride/Dextrose/ Sod Cl (D5-NS + KCl 40 Meq) 1,000 ml @ 100 mls/hr Q10H IV Last administered on 10/06/16 23:53; Admin Dose 100 MLS/HR; Start at 13:00 Lactobacillus Acidophilus (Florajen3 Capsule) 1 each BID PO Last administered on 10/06/16 21:06; Admin Dose 1 EACH; Start 10/05/16 at 14:00 Lokesh ROMAN Oct 07, 2016 09:08
[2016-10-07] MEDS: ESCITALOPRAM 10 MG TAB PO SCH (09:18)
[2016-10-07] MEDS: L ACIDOPHIL/B LACTIS/B LONGUM CAPSULE PO SCH ×2 (09:18→20:27)
[2016-10-07] MEDS: CHOLECALCIFEROL 400 UNITS TAB PO SCH (09:18)
[2016-10-07] MEDS: CALCIUM CARBONATE 500 MG CHEW TAB PO SCH ×2 (09:19→20:27)
--- NOTE | 2016-10-07 11:21 | PN ---
Date/Time of Note Date/Time of Note DATE: 10/07/16 TIME: 11:15 Assessment/Plan VTE Prophylaxis VTE Prophylaxis Intervention: SCD's Lines/Catheters Urinary Cath still in place: Yes Reason Cath still needed: other (indicate) (per Urology ) Assessment/Plan Assessment/Plan 61 yo female with: 1. POD#6 s/p laparoscopic converted to open sigmoidectomy and LAR with ureteral injury and intraoperative repair. Patient much better and has been improving over the weekend Soft diet per Gen Surg today Dr Ramos also following re Ramos and SACHIN drain Ambulation and Incentive spirometer 2. MDD:on SSRIs 3. Hyperlipidemia: Lipitor 4. GERD: on PPI bid 5. Hypokalemia: repleting prn Prophylaxis: SCDs and PPI Disposition: per Gen Surgery and Urology, soft diet today per Dr Gar Subjective 24 Hr Interval Summary Free Text/Dictation Patient feels better today To be on soft diet today per Gen Surg Exam/Review of Systems Vital Signs Vitals Vital Signs Date Time Temp Pulse Resp B/P Pulse Ox O2 Delivery O2 Flow Rate FiO2 10/07/16 07:42 98.3 76 18 125/71 96 10/04/16 19:59 Room Air 10/04/16 08:00 2.0 Intake and Output 10/06/16 10/06/16 10/07/16 15:00 23:00 07:00 Intake Total 750 ml 1000 ml 1200 ml Output Total 180 ml 1690 ml 2070 ml Balance 570 ml -690 ml -870 ml Exam Constitutional: alert, oriented, well developed Respiratory: clear to auscultation, normal air movement Cardiovascular: nl pulses, regular rate and rhythm Gastrointestinal: other (SACHIN drain in place ), soft, tender (minimal ) Musculoskeletal: nl extremities to inspection Extremities: normal pulses, other (no edema, clubbing or cyanosis ) 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, nl mental status, nl speech, nl strength Results Result Diagram: 10/07/1641910/07/16419 Results 24 hrs Laboratory Tests Test 10/07/16 04:20 White Blood Count 9.7 Red Blood Count 3.32 L Hemoglobin 9.8 L Hematocrit 30.5 L Mean Corpuscular Volume 91.9 Mean Corpuscular Hemoglobin 29.5 Mean Corpuscular Hemoglobin Concent 32.1 Red Cell Distribution Width 13.2 Platelet Count 486 #H Mean Platelet Volume 9.2 Neutrophils % 63.2 Lymphocytes % 26.0 Monocytes % 6.5 Eosinophils % 3.3 Basophils % 0.4 Nucleated Red Blood Cells % 0.0 Neutrophils # 6.1 Lymphocytes # 2.5 Monocytes # 0.6 Eosinophils # 0.3 Basophils # 0.0 Nucleated Red Blood Cells # 0.0 Sodium Level 141 Potassium Level 4.0 Chloride Level 106 Carbon Dioxide Level 28 Anion Gap 11 Blood Urea Nitrogen 4 L Creatinine 0.49 Glucose Level 122 Calcium Level 8.2 L Total Bilirubin 0.3 Direct Bilirubin 0.00 Indirect Bilirubin 0.3 Aspartate Amino Transf (AST/SGOT) 50 H Alanine Aminotransferase (ALT/SGPT) 43 Alkaline Phosphatase 50 Total Protein 4.9 L Albumin 2.6 L Globulin 2.30 Albumin/Globulin Ratio 1.13 Medications Medications Current Medications Naloxone HCl (Narcan) 0.2 mg Q2M PRN IV RR 8 BREATHS/MIN OR LESS; Start at 21:00 Diphenhydramine HCl (Benadryl) 25 mg Q6H PRN PO ITCHING Last administered on 22:16; Admin Dose 25 MG; Start 10/01/16 at 22:00 Atorvastatin Calcium (Lipitor) 20 mg QHS PO Last administered on 10/06/16 21: 06; Admin Dose 20 MG; Start 10/02/16 at 21:00 Escitalopram Oxalate (Lexapro) 10 mg DAILY PO Last administered on 10/07/16 09 :18; Admin Dose 10 MG; Start 10/02/16 at 11:30 Cholecalciferol (Vitamin D) 400 units DAILY PO Last administered on 10/07/16 09:18; Admin Dose 400 UNITS; Start 10/03/16 at 09:00 Calcium Carbonate (Tums) 500 mg BID PO Last administered on 10/07/16 09:19; Admin Dose 500 MG; Start 10/02/16 at 21:00 Acetaminophen (Tylenol Tab) 650 mg Q6H PRN PO PAIN AND OR ELEVATED TEMP; Start 10/03/16 at 10:00 Hydromorphone HCl (Dilaudid) 0.5 mg Q3H PRN IV PAIN LEVEL 1-5; Start 10/03/16 at 11:30 Hydromorphone HCl (Dilaudid) 1 mg Q3H PRN IV SEVERE PAIN LEVEL 7-10; Start at 11:30 Ondansetron HCl (Zofran Inj) 4 mg Q4H PRN IV NAUSEA AND/OR VOMITING Last administered on 10/05/16 23:01; Admin Dose 4 MG; Start 10/03/16 at 16:30 Pantoprazole 40 mg 40 mg BID@06,18 PO Last administered on 10/07/16 06:31; Admin Dose 40 MG; Start 10/03/16 at 20:00 Potassium Chloride/Dextrose/ Sod Cl (D5-NS + KCl 40 Meq) 1,000 ml @ 70 mls/hr [id number] IV Last administered on 10/06/16 23:53; Admin Dose 100 MLS/HR; Start 10/04/16 at 13:00 Lactobacillus Acidophilus (Florajen3 Capsule) 1 each BID PO Last administered on 10/07/16 09:18; Admin Dose 1 EACH; Start 10/05/16 at 14:00 JT ALFARO Oct 07, 2016 11:21
[2016-10-07] MEDS: D5-NS + KCL 40 MEQ 1,000 ML IV SCH (14:39)
[2016-10-07 20:25] VITALS: BP 128/62; RESP 16
[2016-10-07] MEDS: ATORVASTATIN 20 MG TAB PO SCH (20:27)
--- NOTE | 2016-10-08 00:10 | PN ---
DATE: 10/07/2016 SUBJECTIVE: The patient feeling much better. She is up ambulating, she is tolerating her diet well , and her pain is much less. OBJECTIVE: VITAL SIGNS: She is afebrile. Temperature is 98.3, blood pressure 125/71, pulse is 76, and the res piration 18. ABDOMEN: Ramos catheter is draining clear urine. The SACHIN drain drained about 100 mL. Yesterday, it was 340; 100 mL so far during the day shift, and the drainage is clear. The urine output so far 90 0 mL today. Yesterday she had a 3600 in 24 hours. LABORATORY DATA: CBC shows a white count 9.7, hemoglobin 9.8, hematocrit 30.5. BUN is 4, creatinin e 0.49. Electrolytes are normal. IMPRESSION: Status post colon resection and left ureteroureterostomy and insertion of a JJ stent. The patient is doing well. Therefore, I will discontinue her Ramos catheter tomorrow morning and se e that she does urinate. I instructed her to try to urinate every 2 hours so do not let the bladder to get too full, so the urine does not back up to the kidney. The patient did understand that and she will do her best to keep bladder from overstretching and getting too full to avoid any efflux of urine through the JJ stent into the kidney. Dictated By: AMANDA SCHWARTZ/EUGENE Conf#: [id number] DID#: [id number] CC: JT ALFARO MD;*End*
[2016-10-08 04:49] LABS: ADD SCAN DIFF NO
[2016-10-08 04:58] LABS: BASOPHILS % 0.3 % (0.0-2.0); EOSINOPHILS # 0.4 10^3/ul (0.0-0.5); EOSINOPHILS % 3.9 % (0.0-7.0); HEMATOCRIT 30.5 % (37.0-47.0); HEMOGLOBIN 9.8 g/dl (12.0-16.0); LYMPHOCYTES # 2.8 10^3/ul (0.8-2.9); LYMPHOCYTES % 29.2 % (15.0-51.0); MEAN CORPUSCULAR HEMOGLOBIN 29.8 pg (29.0-33.0); MEAN CORPUSCULAR HGB CONC 32.1 g/dl (32.0-37.0); MEAN CORPUSCULAR VOLUME 92.7 fl (82.0-101.0); MEAN PLATELET VOLUME 9.1 fl (7.4-10.4); MONOCYTE # 0.6 10^3/ul (0.3-0.9); MONOCYTES % 5.9 % (0.0-11.0); NEUTROPHIL # 5.7 10^3/ul (1.6-7.5); NEUTROPHILS % 60.2 % (39.0-77.0); PLATELET COUNT 522 10^3/UL (140-415); RED BLOOD COUNT 3.29 10^6/ul (4.20-5.40); RED CELL DISTRIBUTION WIDTH 13.5 % (11.5-14.5); WHITE BLOOD COUNT 9.5 10^3/ul (4.8-10.8)
[2016-10-08 05:42] LABS: ALBUMIN/GLOBULIN RATIO 1.3; PHOSPHORUS 3.8 mg/dl (2.5-4.9)
[2016-10-08 05:44] LABS: ALBUMIN 2.6 g/dl (3.3-4.9); BILIRUBIN,INDIRECT 0.3 mg/dl (0-1.1); BILIRUBIN,TOTAL 0.3 mg/dl (0.2-1.3); CALCIUM 8.1 mg/dl (8.4-10.2); CREATININE 0.47 mg/dl (0.44-1.00); POTASSIUM 4.3 mmol/L (3.5-5.1); TOTAL PROTEIN 4.6 g/dl (6.1-8.1)
[2016-10-08] MEDS: D5-NS + KCL 40 MEQ 1,000 ML IV SCH ×2 (06:09→19:54)
[2016-10-08] MEDS: PANTOPRAZOLE (EC) 40 MG TAB PO SCH ×2 (06:09→17:47)
[2016-10-08 07:00] VITALS: BP 121/56; RESP 18
[2016-10-08] MEDS: ESCITALOPRAM 10 MG TAB PO SCH (09:10)
[2016-10-08] MEDS: CHOLECALCIFEROL 400 UNITS TAB PO SCH (09:10)
[2016-10-08] MEDS: CALCIUM CARBONATE 500 MG CHEW TAB PO SCH ×2 (09:10→19:54)
[2016-10-08] MEDS: L ACIDOPHIL/B LACTIS/B LONGUM CAPSULE PO SCH ×2 (09:12→19:54)
--- NOTE | 2016-10-08 11:10 | PN ---
Date/Time of Note Date/Time of Note DATE: 10/08/16 TIME: 11:03 Assessment/Plan VTE Prophylaxis VTE Prophylaxis Intervention: SCD's Lines/Catheters IV Catheter Type (from Nrs): Peripheral IV Urinary Cath still in place: No Assessment/Plan Assessment/Plan 61 yo female with: 1. POD# 7 s/p laparoscopic converted to open sigmoidectomy and LAR with ureteral injury and intraoperative repair. Patient much better and tolerating diet Vinson catheter removed today and voiding so far SACHIN drain in place, furhter recs per Dr Gar Ambulation and Incentive spirometer 2. MDD:on SSRIs 3. Hyperlipidemia: Lipitor 4. GERD: on PPI bid 5. Hypokalemia: repleting prn Prophylaxis: SCDs and PPI Disposition: D/c plans per Gen Surgery and Urology, soft diet today per Dr Gar Subjective 24 Hr Interval Summary Free Text/Dictation Patient remains stable, vinson removed No complaints today, tolerating po and very active SACHIN drain still in place Exam/Review of Systems Vital Signs Vitals Vital Signs Date Time Temp Pulse Resp B/P Pulse Ox O2 Delivery O2 Flow Rate FiO2 10/08/16 07:00 98.3 82 18 121/56 95 10/04/16 19:59 Room Air 10/04/16 08:00 2.0 Intake and Output 10/07/16 10/07/16 10/08/16 15:00 23:00 07:00 Intake Total 900 ml 810 ml 1180 ml Output Total 100 ml 900 ml 1920 ml Balance 800 ml -90 ml -740 ml Exam Constitutional: alert, oriented, well developed Respiratory: clear to auscultation, normal air movement Cardiovascular: nl pulses, regular rate and rhythm Gastrointestinal: non-tender, other (SACHIN drain in place ), soft Musculoskeletal: nl extremities to inspection Extremities: normal pulses, other (no edema, clubbing or cyanosis ) Neurological: 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 EXPORT 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-XII 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, nl mental status, nl speech, nl strength Results Result Diagram: 10/08/16 0433 10/08/16 0433 Results 24 hrs Laboratory Tests Test 10/08/16 04:33 White Blood Count 9.5 Red Blood Count 3.29 L Hemoglobin 9.8 L Hematocrit 30.5 L Mean Corpuscular Volume 92.7 Mean Corpuscular Hemoglobin 29.8 Mean Corpuscular Hemoglobin Concent 32.1 Red Cell Distribution Width 13.5 Platelet Count 522 H Mean Platelet Volume 9.1 Neutrophils % 60.2 Lymphocytes % 29.2 Monocytes % 5.9 Eosinophils % 3.9 Basophils % 0.3 Nucleated Red Blood Cells % 0.0 Neutrophils # 5.7 Lymphocytes # 2.8 Monocytes # 0.6 Eosinophils # 0.4 Basophils # 0.0 Nucleated Red Blood Cells # 0.0 Sodium Level 138 Potassium Level 4.3 Chloride Level 108 Carbon Dioxide Level 28 Anion Gap 6 L Blood Urea Nitrogen 3 L Creatinine 0.47 Glucose Level 114 Calcium Level 8.1 L Phosphorus Level 3.8 Magnesium Level 2.0 Total Bilirubin 0.3 Direct Bilirubin 0.00 Indirect Bilirubin 0.3 Aspartate Amino Transf (AST/SGOT) 36 Alanine Aminotransferase (ALT/SGPT) 43 Alkaline Phosphatase 50 Total Protein 4.6 L Albumin 2.6 L Globulin 2.00 Albumin/Globulin Ratio 1.30 Medications Medications Current Medications Naloxone HCl (Narcan) 0.2 mg Q2M PRN IV RR 8 BREATHS/MIN OR LESS; Start at 21:00 Diphenhydramine HCl (Benadryl) 25 mg Q6H PRN PO ITCHING Last administered on 22:16; Admin Dose 25 MG; Start 10/01/16 at 22:00 Atorvastatin Calcium (Lipitor) 20 mg QHS PO Last administered on 10/07/16 20: 27; Admin Dose 20 MG; Start 10/02/16 at 21:00 Escitalopram Oxalate (Lexapro) 10 mg DAILY PO Last administered on 10/08/16 09 :10; Admin Dose 10 MG; Start 10/02/16 at 11:30 Cholecalciferol (Vitamin D) 400 units DAILY PO Last administered on 10/08/16 09:10; Admin Dose 400 UNITS; Start 10/03/16 at 09:00 Calcium Carbonate (Tums) 500 mg BID PO Last administered on 10/08/16 09:10; Admin Dose 500 MG; Start 10/02/16 at 21:00 Acetaminophen (Tylenol Tab) 650 mg Q6H PRN PO PAIN AND OR ELEVATED TEMP; Start 10/03/16 at 10:00 Hydromorphone HCl (Dilaudid) 0.5 mg Q3H PRN IV PAIN LEVEL 1-5; Start 10/03/16 at 11:30 Hydromorphone HCl (Dilaudid) 1 mg Q3H PRN IV SEVERE PAIN LEVEL 7-10; Start at 11:30 Ondansetron HCl (Zofran Inj) 4 mg Q4H PRN IV NAUSEA AND/OR VOMITING Last administered on 10/05/16 23:01; Admin Dose 4 MG; Start 10/03/16 at 16:30 Pantoprazole 40 mg 40 mg BID@06,18 PO Last administered on 10/08/16 06:09; Admin Dose 40 MG; Start 10/03/16 at 20:00 Potassium Chloride/Dextrose/ Sod Cl (D5-NS + KCl 40 Meq) 1,000 ml @ 70 mls/hr [id number] IV Last administered on 10/08/16 06:09; Admin Dose 70 MLS/HR; Start at 13:00 Lactobacillus Acidophilus (Florajen3 Capsule) 1 each BID PO Last administered on 10/08/16 09:12; Admin Dose 1 EACH; Start 10/05/16 at 14:00 JT ALFARO Oct 08, 2016 11:10
[2016-10-08 12:39] VITALS: BP 140/71; PULSE 79; RESP 18
--- NOTE | 2016-10-08 16:35 | PN ---
Date/Time of Note Date/Time of Note DATE: 10/08/16 TIME: 16:34 Assessment/Plan VTE Prophylaxis VTE Prophylaxis Intervention: SCD's Lines/Catheters IV [facility]from [facility] Peripheral IV Urinary Cath still in place: No Assessment/Plan Chief Complaint/Hosp Course s/p lap converted to open sigmoidectomy and LAR with ureteral injury and intraoperative repair Problems: Assessment/Plan doing well, vinson dc tomorrow by urology possible dc home tomorrow Subjective 24 Hr Interval Summary Free Text/Dictation patient doing well, vinson to be d/c by urology tomorrow possible d/c tomorrow Exam/Review of Systems Vital Signs Vitals Vital Signs Date Time Temp Pulse Resp B/P Pulse Ox O2 Delivery O2 Flow Rate FiO2 10/08/16 12:39 98.1 79 18 140/71 97 Room Air 10/04/16 08:00 2.0 Intake and Output 10/07/16 10/07/16 10/08/16 15:00 23:00 07:00 Intake Total 900 ml 810 ml 1180 ml Output Total 100 ml 900 ml 1920 ml Balance 800 ml -90 ml -740 ml Exam c/d/i drain in place Results Result Diagram: 10/08/16 0433 10/08/16 0433 Results 24 hrs Laboratory Tests Test 10/08/16 04:33 White Blood Count 9.5 Red Blood Count 3.29 L Hemoglobin 9.8 L Hematocrit 30.5 L Mean Corpuscular Volume 92.7 Mean Corpuscular Hemoglobin 29.8 Mean Corpuscular Hemoglobin Concent 32.1 Red Cell Distribution Width 13.5 Platelet Count 522 H Mean Platelet Volume 9.1 Neutrophils % 60.2 Lymphocytes % 29.2 Monocytes % 5.9 Eosinophils % 3.9 Basophils % 0.3 Nucleated Red Blood Cells % 0.0 Neutrophils # 5.7 Lymphocytes # 2.8 Monocytes # 0.6 Eosinophils # 0.4 Basophils # 0.0 Nucleated Red Blood Cells # 0.0 Sodium Level 138 Potassium Level 4.3 Chloride Level 108 Carbon Dioxide Level 28 Anion Gap 6 L Blood Urea Nitrogen 3 L Creatinine 0.47 Glucose Level 114 Calcium Level 8.1 L Phosphorus Level 3.8 Magnesium Level 2.0 Total Bilirubin 0.3 Direct Bilirubin 0.00 Indirect Bilirubin 0.3 Aspartate Amino Transf (AST/SGOT) 36 Alanine Aminotransferase (ALT/SGPT) 43 Alkaline Phosphatase 50 Total Protein 4.6 L Albumin 2.6 L Globulin 2.00 Albumin/Globulin Ratio 1.30 Medications Medications Current Medications Naloxone HCl (Narcan) 0.2 mg Q2M PRN IV RR 8 BREATHS/MIN OR LESS; Start at 21:00 Diphenhydramine HCl (Benadryl) 25 mg Q6H PRN PO ITCHING Last administered on 22:16; Admin Dose 25 MG; Start 10/01/16 at 22:00 Atorvastatin Calcium (Lipitor) 20 mg QHS PO Last administered on 10/07/16 20: 27; Admin Dose 20 MG; Start 10/02/16 at 21:00 Escitalopram Oxalate (Lexapro) 10 mg DAILY PO Last administered on 10/08/16 09 :10; Admin Dose 10 MG; Start 10/02/16 at 11:30 Cholecalciferol (Vitamin D) 400 units DAILY PO Last administered on 10/08/16 09:10; Admin Dose 400 UNITS; Start 10/03/16 at 09:00 Calcium Carbonate (Tums) 500 mg BID PO Last administered on 10/08/16 09:10; Admin Dose 500 MG; Start 10/02/16 at 21:00 Acetaminophen (Tylenol Tab) 650 mg Q6H PRN PO PAIN AND OR ELEVATED TEMP; Start 10/03/16 at 10:00 Hydromorphone HCl (Dilaudid) 0.5 mg Q3H PRN IV PAIN LEVEL 1-5; Start 10/03/16 at 11:30 Hydromorphone HCl (Dilaudid) 1 mg Q3H PRN IV SEVERE PAIN LEVEL 7-10; Start at 11:30 Ondansetron HCl (Zofran Inj) 4 mg Q4H PRN IV NAUSEA AND/OR VOMITING Last administered on 10/05/16 23:01; Admin Dose 4 MG; Start 10/03/16 at 16:30 Pantoprazole 40 mg 40 mg BID@06,18 PO Last administered on 10/08/16 06:09; Admin Dose 40 MG; Start 10/03/16 at 20:00 Potassium Chloride/Dextrose/ Sod Cl (D5-NS + KCl 40 Meq) 1,000 ml @ 70 mls/hr [id number] IV Last administered on 10/08/16 06:09; Admin Dose 70 MLS/HR; Start at 13:00 Lactobacillus Acidophilus (Florajen3 Capsule) 1 each BID PO Last administered on 10/08/16 09:12; Admin Dose 1 EACH; Start 10/05/16 at 14:00 Lokesh ROMAN Oct 08, 2016 16:35
[2016-10-08] MEDS: ATORVASTATIN 20 MG TAB PO SCH (19:54)
[2016-10-08 21:24] VITALS: BP 114/62; RESP 16
--- NOTE | 2016-10-08 22:35 | PN ---
DATE: 10/08/2016 SUBJECTIVE: The patient is feeling much better. She denies any pain. She is voiding well. There is no dysuria and no hematuria. The patient is status post colon resection for a polyp and also a left ureteroureterostomy secondary to an injury of the ureter during the surgery and insertion of left ureteral JJ stent. The patient had an indwelling Ramos catheter that was removed this morning. OBJECTIVE: VITAL SIGNS: Her temperature is 98.1, pulse 79, respiration 18, blood pressure 140/71. ABDOMEN: Soft. The patient is voiding well and the urine is clear. She denies any pain going from her bladder toward her kidney. LABORATORY DATA: Her CBC shows a white count of 9.5, hemoglobin 9.8, hematocrit 30.5. BUN is 3, creatinine 0.47. Electrolytes are normal. The SACHIN drain is draining about 35 mL per 12 hours. Yesterday, had 170. PLAN: To continue to monitor her voiding and also monitor the drainage from the SACHIN drain. If she is stable tomorrow, then she may be able to go home and have the SACHIN drain removed either tomorrow or later on once the drainage is less than probably 50 mL. Dictated By: AMANDA SCHWARTZ/EUGENE Conf#: [id number] DID#: [id number] CC: JT ALFARO MD;*EndCC* MTDD
[2016-10-09 05:16] LABS: ADD SCAN DIFF NO
[2016-10-09] MEDS: PANTOPRAZOLE (EC) 40 MG TAB PO SCH (05:19)
[2016-10-09 05:33] LABS: BASOPHILS % 0.3 % (0.0-2.0); EOSINOPHILS # 0.4 10^3/ul (0.0-0.5); HEMATOCRIT 30.4 % (37.0-47.0); HEMOGLOBIN 9.6 g/dl (12.0-16.0); LYMPHOCYTES # 2.6 10^3/ul (0.8-2.9); MEAN CORPUSCULAR HEMOGLOBIN 29.3 pg (29.0-33.0); MEAN CORPUSCULAR HGB CONC 31.6 g/dl (32.0-37.0); MEAN CORPUSCULAR VOLUME 92.7 fl (82.0-101.0); MEAN PLATELET VOLUME 9.1 fl (7.4-10.4); MONOCYTE # 0.7 10^3/ul (0.3-0.9); MONOCYTES % 6.6 % (0.0-11.0); NEUTROPHILS % 61.5 % (39.0-77.0); PLATELET COUNT 584 10^3/UL (140-415); RED BLOOD COUNT 3.28 10^6/ul (4.20-5.40); RED CELL DISTRIBUTION WIDTH 13.6 % (11.5-14.5); WHITE BLOOD COUNT 9.8 10^3/ul (4.8-10.8)
[2016-10-09 05:37] LABS: ALBUMIN 2.6 g/dl (3.3-4.9)
[2016-10-09 05:39] LABS: CREATININE 0.48 mg/dl (0.44-1.00)
[2016-10-09 05:40] LABS: ALBUMIN/GLOBULIN RATIO 1.08; BILIRUBIN,INDIRECT 0.2 mg/dl (0-1.1); BILIRUBIN,TOTAL 0.2 mg/dl (0.2-1.3)
[2016-10-09 05:41] LABS: CALCIUM 8.1 mg/dl (8.4-10.2)
[2016-10-09 07:00] VITALS: BP 120/60; RESP 18
[2016-10-09] MEDS: L ACIDOPHIL/B LACTIS/B LONGUM CAPSULE PO SCH (09:13)
[2016-10-09] MEDS: CHOLECALCIFEROL 400 UNITS TAB PO SCH (09:13)
[2016-10-09] MEDS: ESCITALOPRAM 10 MG TAB PO SCH (09:14)
[2016-10-09] MEDS: CALCIUM CARBONATE 500 MG CHEW TAB PO SCH (09:14)
--- NOTE | 2016-10-09 10:14 | PN ---
Date/Time of Note Date/Time of Note DATE: 10/09/16 TIME: 10:09 Assessment/Plan VTE Prophylaxis VTE Prophylaxis Intervention: SCD's Lines/Catheters IV Catheter Type (from Nrs): Peripheral IV Urinary Cath still in place: No Assessment/Plan Assessment/Plan 61 yo female with: 1. POD# 8 s/p laparoscopic converted to open sigmoidectomy and LAR with ureteral injury and intraoperative repair. Patient much better and tolerating diet Voiding well so far SACHIN drain to be removed soon as outpatient likely Will need f/u outpatient with Dr Ramos and Dr Gar, d/c plan today if oK with both. Ambulation and Incentive spirometer 2. MDD:on SSRIs 3. Hyperlipidemia: Lipitor 4. GERD: on PPI bid 5. Hypokalemia: repleting prn Prophylaxis: SCDs and PPI Disposition: D/c plan today if ok with Gen Surgery and Urology, with outpatient follow uu and Home Health for SACHIN drain/wound care. Subjective 24 Hr Interval Summary Free Text/Dictation Patient doing well No complaints today Tolerating po Per patient was told by Surgery likely to go home with SACHIN drain and follow up with Urology and Gen Surgery Exam/Review of Systems Vital Signs Vitals Vital Signs Date Time Temp Pulse Resp B/P Pulse Ox O2 Delivery O2 Flow Rate FiO2 10/09/16 07:00 98.0 87 18 120/60 96 10/08/16 12:39 Room Air Intake and Output 10/08/16 10/08/16 10/09/16 15:00 23:00 07:00 Intake Total 1970 ml 2000 ml Output Total 35 ml 1700 ml 905 ml Balance -35 ml 270 ml 1095 ml Exam Constitutional: alert, oriented, well developed Cardiovascular: nl pulses, regular rate and rhythm Gastrointestinal: non-tender, other (SACHIN drain in place ), soft Extremities: normal pulses, other (no edema, clubbing or cyanosis ) 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, nl mental status, nl speech, nl strength Results Result Diagram: 10/09/162 10/09/16 0432 Results 24 hrs Laboratory Tests Test 10/09/16 04:32 White Blood Count 9.8 Red Blood Count 3.28 L Hemoglobin 9.6 L Hematocrit 30.4 L Mean Corpuscular Volume 92.7 Mean Corpuscular Hemoglobin 29.3 Mean Corpuscular Hemoglobin Concent 31.6 L Red Cell Distribution Width 13.6 Platelet Count 584 H Mean Platelet Volume 9.1 Neutrophils % 61.5 Lymphocytes % 27.0 Monocytes % 6.6 Eosinophils % 4.0 Basophils % 0.3 Nucleated Red Blood Cells % 0.0 Neutrophils # 6.0 Lymphocytes # 2.6 Monocytes # 0.7 Eosinophils # 0.4 Basophils # 0.0 Nucleated Red Blood Cells # 0.0 Sodium Level 140 Potassium Level 4.0 Chloride Level 105 Carbon Dioxide Level 28 Anion Gap 11 Blood Urea Nitrogen 5 L Creatinine 0.48 Glucose Level 115 Calcium Level 8.1 L Total Bilirubin 0.2 Direct Bilirubin 0.00 Indirect Bilirubin 0.2 Aspartate Amino Transf (AST/SGOT) 22 Alanine Aminotransferase (ALT/SGPT) 46 Alkaline Phosphatase 48 Total Protein 5.0 L Albumin 2.6 L Globulin 2.40 Albumin/Globulin Ratio 1.08 Medications Medications Current Medications Naloxone HCl (Narcan) 0.2 mg Q2M PRN IV RR 8 BREATHS/MIN OR LESS; Start at 21:00 Diphenhydramine HCl (Benadryl) 25 mg Q6H PRN PO ITCHING Last administered on 22:16; Admin Dose 25 MG; Start 10/01/16 at 22:00 Atorvastatin Calcium (Lipitor) 20 mg QHS PO Last administered on 10/08/16 19: 54; Admin Dose 20 MG; Start 10/02/16 at 21:00 Escitalopram Oxalate (Lexapro) 10 mg DAILY PO Last administered on 10/09/16 09 :14; Admin Dose 10 MG; Start 10/02/16 at 11:30 Cholecalciferol (Vitamin D) 400 units DAILY PO Last administered on 10/09/16 09:13; Admin Dose 400 UNITS; Start 10/03/16 at 09:00 Calcium Carbonate (Tums) 500 mg BID PO Last administered on 10/09/16 09:14; Admin Dose 500 MG; Start 10/02/16 at 21:00 Acetaminophen (Tylenol Tab) 650 mg Q6H PRN PO PAIN AND OR ELEVATED TEMP; Start 10/03/16 at 10:00 Hydromorphone HCl (Dilaudid) 0.5 mg Q3H PRN IV PAIN LEVEL 1-5; Start 10/03/16 at 11:30 Hydromorphone HCl (Dilaudid) 1 mg Q3H PRN IV SEVERE PAIN LEVEL 7-10; Start at 11:30 Ondansetron HCl (Zofran Inj) 4 mg Q4H PRN IV NAUSEA AND/OR VOMITING Last administered on 10/05/16 23:01; Admin Dose 4 MG; Start 10/03/16 at 16:30 Pantoprazole 40 mg 40 mg BID@06,18 PO Last administered on 10/09/16 05:19; Admin Dose 40 MG; Start 10/03/16 at 20:00 Potassium Chloride/Dextrose/ Sod Cl (D5-NS + KCl 40 Meq) 1,000 ml @ 70 mls/hr [id number] IV Last administered on 10/08/16 19:54; Admin Dose 70 MLS/HR; Start at 13:00 Lactobacillus Acidophilus (Florajen3 Capsule) 1 each BID PO Last administered on 10/09/16 09:13; Admin Dose 1 EACH; Start 10/05/16 at 14:00 JT ALFARO Oct 09, 2016 10:14
--- NOTE | 2016-10-09 10:39 | PDOCDIS ---
Discharge Instructions CONDITION Patient Condition: Stable HOME CARE INSTRUCTIONS: Diet Instructions: Regular ACTIVITY: Activity Restrictions: Slowly Increase Activity Rest between Activity Avoid heavy lifting Do not Drive Do not operate Machinery Do not operate Power Tool Avoid Heavy Housework Bathing Restrictions: Shower FOLLOW UP/APPOINTMENTS Appointments Follow up with Dr Gar within 1 to 2 weeks Follow up with Urology, patient needs a referral to see Dr Ramos in the office in about 2 weeks and then he will request an authorization to do a cystoscopy and remove the JJ stent and do a retrograde and then decide whether we need to put another stent or not. Referral to be arranged through [facility] Follow up with PCP within 1 week Follow up with Home Health re SACHIN drain/wound care JT ALFARO Oct 09, 2016 10:39
[2016-10-09] MEDS ORDERED: HYDR-906 PO (10:41)
[2016-10-09] MEDS: D5-NS + KCL 40 MEQ 1,000 ML IV SCH (10:51)
--- NOTE | 2016-10-09 13:22 | PN ---
DATE: 10/09/2016 SUBJECTIVE: The patient states that she is feeling tired today, but she is doing well. In essence, she is voiding well. She has no pain with urination and her urine is clear. OBJECTIVE: VITAL SIGNS: Temperature is 98.0, blood pressure 120/60, pulse is 87, respirations 18. ABDOMEN: Soft. The SACHIN drain drained about 170 in the past 24 hours and 90 mL in the last 12 hours. The drainage is yellowish. LABORATORY DATA: Her CBC shows a white count of 9.8, hemoglobin 9.6, hematocrit 30.4. BUN is 5, cr eatinine 0.48. IMPRESSION: Good progress so far. PLAN: To keep the SACHIN drain until the drainage is small and Dr. Gar will decide when to take it out. As far as urology, she will need a referral to see me in the office in about 2 weeks and then I wi ll request an authorization to do a cystoscopy and remove the JJ stent and do a retrograde and then decide whether we need to put another stent or not. I have explained that to the patient. I have g iven her my card with my name, address and phone number so she could request from her physician to s end a referral to my office. Dictated By: AMANDA SCHWARTZ/EUGENE Conf#: [id number] DID#: [id number]
--- NOTE | 2016-10-09 15:08 | PN ---
Date/Time of Note Date/Time of Note DATE: 10/09/16 TIME: 15:07 Assessment/Plan VTE Prophylaxis VTE Prophylaxis Intervention: SCD's Lines/Catheters IV Catheter Type (from Nrs): Peripheral IV Urinary Cath still in place: No Assessment/Plan Chief Complaint/Hosp Course s/p lap converted to open sigmoidectomy and LAR with ureteral injury and intraoperative repair Problems: Assessment/Plan doing well tolerating diet, reggie drain slowly decreasing dc home f/u in 2 weeks Subjective 24 Hr Interval Summary Free Text/Dictation doing well, no issues, drain in place Exam/Review of Systems Vital Signs Vitals Vital Signs Date Time Temp Pulse Resp B/P Pulse Ox O2 Delivery O2 Flow Rate FiO2 10/09/16 07:00 98.0 87 18 120/60 96 10/08/16 12:39 Room Air Intake and Output 10/08/16 10/08/16 10/09/16 15:00 23:00 07:00 Intake Total 1970 ml 2000 ml Output Total 35 ml 1700 ml 905 ml Balance -35 ml 270 ml 1095 ml Exam c/d/i Results Result Diagram: 10/09/16 0432 10/09/16 0432 Results 24 hrs Laboratory Tests Test 10/09/16 04:32 White Blood Count 9.8 Red Blood Count 3.28 L Hemoglobin 9.6 L Hematocrit 30.4 L Mean Corpuscular Volume 92.7 Mean Corpuscular Hemoglobin 29.3 Mean Corpuscular Hemoglobin Concent 31.6 L Red Cell Distribution Width 13.6 Platelet Count 584 H Mean Platelet Volume 9.1 Neutrophils % 61.5 Lymphocytes % 27.0 Monocytes % 6.6 Eosinophils % 4.0 Basophils % 0.3 Nucleated Red Blood Cells % 0.0 Neutrophils # 6.0 Lymphocytes # 2.6 Monocytes # 0.7 Eosinophils # 0.4 Basophils # 0.0 Nucleated Red Blood Cells # 0.0 Sodium Level 140 Potassium Level 4.0 Chloride Level 105 Carbon Dioxide Level 28 Anion Gap 11 Blood Urea Nitrogen 5 L Creatinine 0.48 Glucose Level 115 Calcium Level 8.1 L Total Bilirubin 0.2 Direct Bilirubin 0.00 Indirect Bilirubin 0.2 Aspartate Amino Transf (AST/SGOT) 22 Alanine Aminotransferase (ALT/SGPT) 46 Alkaline Phosphatase 48 Total Protein 5.0 L Albumin 2.6 L Globulin 2.40 Albumin/Globulin Ratio 1.08 Medications Medications Current Medications Naloxone HCl (Narcan) 0.2 mg Q2M PRN IV RR 8 BREATHS/MIN OR LESS; Start at 21:00 Diphenhydramine HCl (Benadryl) 25 mg Q6H PRN PO ITCHING Last administered on 22:16; Admin Dose 25 MG; Start 10/01/16 at 22:00 Atorvastatin Calcium (Lipitor) 20 mg QHS PO Last administered on 10/08/16 19: 54; Admin Dose 20 MG; Start 10/02/16 at 21:00 Escitalopram Oxalate (Lexapro) 10 mg DAILY PO Last administered on 10/09/16 09 :14; Admin Dose 10 MG; Start 10/02/16 at 11:30 Cholecalciferol (Vitamin D) 400 units DAILY PO Last administered on 10/09/16 09:13; Admin Dose 400 UNITS; Start 10/03/16 at 09:00 Calcium Carbonate (Tums) 500 mg BID PO Last administered on 10/09/16 09:14; Admin Dose 500 MG; Start 10/02/16 at 21:00 Acetaminophen (Tylenol Tab) 650 mg Q6H PRN PO PAIN AND OR ELEVATED TEMP; Start 10/03/16 at 10:00 Hydromorphone HCl (Dilaudid) 0.5 mg Q3H PRN IV PAIN LEVEL 1-5 Last administered on 10/09/16 10:56; Admin Dose 0.5 MG; Start 10/03/16 at 11:30 Hydromorphone HCl (Dilaudid) 1 mg Q3H PRN IV SEVERE PAIN LEVEL 7-10; Start at 11:30 Ondansetron HCl (Zofran Inj) 4 mg Q4H PRN IV NAUSEA AND/OR VOMITING Last administered on 10/05/16 23:01; Admin Dose 4 MG; Start 10/03/16 at 16:30 Pantoprazole (Protonix Tab) 40 mg BID@,18 PO Last administered on 10/09/16 05:19; Admin Dose 40 MG; Start 10/03/16 at 20:00 Lactobacillus Acidophilus (Florajen3 Capsule) 1 each BID PO Last administered on 10/09/16 09:13; Admin Dose 1 EACH; Start 10/05/16 at 14:00 Lokesh ROMAN Oct 09, 2016 15:08
--- NOTE | 2016-10-10 11:17 | DS ---
DATE OF ADMISSION: 09/30/2016 DATE OF DISCHARGE: 10/09/2016 ADMITTING PHYSICIAN: Mica Gar MD DISCHARGE PHYSICIAN: Jt Buenrostro MD and Mica Gar MD CHIEF COMPLAINT ON ADMISSION: Elective sigmoidoscopy. BRIEF HISTORY OF PRESENTING ILLNESS: This is a 61-year-old female with history of major depressive disorder, hyperlipidemia, gastroesophageal reflux disease, who was brought in for a sigmoidoscopy by Dr. Gar. Postoperatively, the patient was admitted to a medical/surgical bed. HOSPITAL COURSE: Intraoperatively, the patient did have an ureteral injury with intraoperative repa ir, SACHIN drain placement. Dr. Ramos from urology was involved. He had to put a JJ stent in and the patient had a Ramos catheter placed. She was started on Dilaudid CONCRETE BLOCK MOLDER; however, within 24 hours she was noted to be extremely lethargic. CONCRETE BLOCK MOLDER was discontinued. The patient was switched to p.r.n. Tor adol and p.r.n. Dilaudid IV. Her lethargy did improve significantly. By postoperative day 3 approx imately, she had an episode of nausea, vomiting, abdominal distention, requiring NG tube placement t o suction. This was placed and kept in for approximately 18 hours with relief of her symptoms. The refore, it was removed. The patient was started on p.o. She progressed very well. She had flatus, bowel movements, has been ambulating, pain is well controlled. Her Ramos catheter was eventually r emoved. Her SACHIN drain is still having significant output at this time; therefore, it is left in plac e. By the time of discharge, the patient is tolerating a soft regular diet. She is ambulating, pas sing gas, having bowel movement, pain is very minimal. She does understand the instructions. She h as been discharged home with home health as a backup for wound care and SACHIN drain. She is to follow up with Dr. Ramos from urology as an outpatient within 2 weeks and follow up with Dr. Gar within 1 to 2 weeks. DISPOSITION: Discharge home with home health. DISCHARGE CONDITION: Stable. DISCHARGE DIET: Regular diet. DISCHARGE ACTIVITY: Resume home activity, avoiding heavy lifting. FOLLOWUP: 1. The patient is to follow up with Dr. Gar within 1 to 2 weeks. 2. Follow up with urology. The patient needs to see Dr. Ramos in the office in about 2 weeks, wh ere he will request authorization for cystoscopy and JJ stent removal, also retrograde and decides i f the patient needs another stent to be placed. 3. Follow up with primary care physician within 1 week. 4. Follow up with home health for SACHIN drain and wound care. DISCHARGE DIAGNOSES: 1. Postoperative day #8 status post laparoscopic converted to open sigmoidoscopy with urethral inju ry and status post intraoperative repair. 2. Major depressive disorder. 3. Hyperlipidemia. 4. Gastroesophageal reflux disease. 5. Hypokalemia, resolved. DISCHARGE MEDICATIONS: Include: 1. [place] 5/325 one tab p.o. q.8 hours p.r.n. severe pain. 2. Fosamax 70 mg p.o. weekly. 3. Lipitor 20 mg p.o. at bedtime. 4. Calcium carbonate 600 mg p.o. b.i.d. 5. Vitamin D 400 units daily. 6. Lexapro 10 mg p.o. daily. 7. Protonix 40 mg p.o. daily. Dictated By: JT COLMENARES/EUGENE Conf#: [id number] DID#: [id number]
== END 2016-10-09 18:40 | disposition home or self-care (01) | DRG 330 ==
LOC: REC 11:21 → MS1 23:00
PROVIDERS: ADMIT Internal Medicine; ATTEND Surgery
PROC: 0DBP0ZZ Excision of Rectum, Open Approach (ICD-10-PCS; 2016-09-30)
PROC: 0DJD4ZZ Inspection of Lower Intestinal Tract, Percutaneous Endoscopic Approach (ICD-10-PCS; 2016-09-30)
PROC: 0TQ70ZZ Repair Left Ureter, Open Approach (ICD-10-PCS; 2016-09-30)
PROC: 0DBN0ZZ Excision of Sigmoid Colon, Open Approach (ICD-10-PCS; principal; 2016-09-30 14:30)
DX: D12.5 Benign neoplasm of sigmoid colon (principal); N99.71 Accidental puncture and laceration of a genitourinary system organ or structure during a genitourinary system procedure; K62.1 Rectal polyp; K63.89 Other specified diseases of intestine; Y83.3 Surgical operation with formation of external stoma as the cause of abnormal reaction of the patient, or of later complication, without mention of misadventure at the time of the procedure; F32.9 Major depressive disorder, single episode, unspecified; E78.5 Hyperlipidemia, unspecified; K21.9 Gastro-esophageal reflux disease without esophagitis; E87.6 Hypokalemia
CPT/HCPCS: 74000; 74430; 80053; 81001; 81003; 82962; 83735; 84100; 85025; 87086; 88307; 97110; 97116; 97162; 97530; C2617; J0295; J1170; J1885; J2175; J2250; J2274; J2405; J2710; J3010; J3475; J3480; J7030; J7040; J7120

== ENCOUNTER 2016-11-19 10:03 | Day surgery (SDC) | payer OTHER ==
[~2016-11-19] VITALS: Ht 147.3 cm; Wt 59.0 kg
[2016-11-19] VITALS (9 sets, daily range): BP systolic 104–122; BP diastolic 57–68; PULSE 67–84; RESP 6–19; Ht 147.3 cm; Wt 59.0 kg
[~2016-11-19 10:03] MED LIST changes: +ALEN70TA30 PO; +ATOR20TA38 PO; +CALC600T5 PO; +CEFAZOLIN 1 GM INJ ONE; +CHOL400C PO; +ESCI10TA PO; +HYDR-906 PO; +PANT40TA3 PO; -[UNRECOGNIZED DRUG - REMARK]
[2016-11-19] MEDS ORDERED: CEFAZOLIN 2 GM/50 ML (PMX) 50 ML IVPB ONE (10:30)
[2016-11-19] MEDS ORDERED: IOHEXOL 300MG/ML 30 ML BTL ONE (11:59)
--- NOTE | 2016-11-19 12:00 | HP ---
DATE OF ADMISSION: 11/19/2016 The patient is scheduled for surgery today at 12:30. CHIEF COMPLAINT: This patient is status post left ureteral injury during colon resection and left u reteroureterostomy and insertion of left ureteral JJ stent on 09/30/2016. The patient is being admi tted today to have a cystoscopy and remove the JJ stent and do a retrograde pyelogram, and if needed , to put a new JJ stent. HISTORY OF PRESENT ILLNESS: This is a 61-year-old female who has a history of sigmoid polyp that wa s removed, and during the procedure on September 30, she had an injury to her left ureter and I was ca lled to see her then in the operating room. The left ureter was transected; therefore, we had to do left ureteroureterostomy and insertion of a JJ stent. That was done, and now the patient is being brought in to remove the JJ stent and do a retrograde pyelogram after that, and hopefully the ureter has healed, and if there is any need to put a new JJ stent, we will do that. PHYSICAL EXAMINATION GENERAL: Reveals an elderly female who is in no acute distress at the present. HEAD AND NECK: Unremarkable. ABDOMEN: Soft. There is no tenderness. LABORATORY DATA: Last urine culture, she was in my office on October 24 and we did a urine culture ruby t showed no growth. IMPRESSION: The patient is status post left ureteral injury and left ureteroureterostomy and insert ion of a JJ stent. PLAN: As mentioned, is to do a cystoscopy, remove the old JJ stent, and then do left retrograde shannan logram, and if the ureter is patent and no obstruction, that should do it. If not, the patient may need another JJ stent. I have explained the procedure to the patient, to her as well, and t he possible results, and the patient as well as her did understand the procedure, and I answ ered all of their questions, and they are agreeable to proceed. Dictated By: AMANDA SCHWARTZ/EUGENE Conf#: [id number] DID#: [id number]
[2016-11-19] MEDS ORDERED: PROPOFOL 60 ML ONE (12:17)
[2016-11-19] MEDS ORDERED: LIDOCAINE 2% (SDV) 5 ML INJ ONE (12:17)
[2016-11-19] MEDS ORDERED: ROCURONIUM 50 MG INJ ONE (12:18)
[2016-11-19] MEDS ORDERED: FENTAnyl 50 MCG/ML VIAL ONE (12:21)
[2016-11-19] MEDS ORDERED: GLYCOPYRROLATE 0.4 MG INJ ONE (13:07)
[2016-11-19] MEDS ORDERED: NEOSTIGMINE 3 MG/3 ML SYRINGE ONE (13:07)
[2016-11-19] MEDS ORDERED: hydrALAzine 20 MG INJ IV PRN (13:30)
[2016-11-19] MEDS ORDERED: LABETALOL HCL 20MG INJ IV PRN (13:30)
[2016-11-19] MEDS ORDERED: FENTAnyl 50 MCG/ML VIAL IV PRN ×3 (13:30)
[2016-11-19] MEDS ORDERED: HYDROCODONE/APAP (5/325) TAB PO PRN (13:30)
[2016-11-19] MEDS ORDERED: EPHEDrine SULFATE 50 MG/5 ML SYG IV PRN (13:30)
[2016-11-19] MEDS ORDERED: ONDANSETRON 4 MG INJ IV PRN (13:30)
[2016-11-19] MEDS ORDERED: MEPERIDINE 25 MG INJ IV PRN (13:30)
[2016-11-19] MEDS ORDERED: DIPHENHYDRAMINE 50 MG INJ IV PRN (13:30)
--- NOTE | 2016-11-19 13:39 | OPR ---
DATE OF OPERATION: 11/19/2016 PREOPERATIVE DIAGNOSIS: The patient is status post left ureteral injury and left ureteroureterostom y and insertion of a JJ stent. POSTOPERATIVE DIAGNOSIS: The patient is status post left ureteral injury and left ureteroureterosto my and insertion of a JJ stent. PROCEDURE PERFORMED: Cystoscopy, removal of left ureteral JJ stent and left retrograde pyelogram. SURGEON: Suresh Ramos MD FINDINGS: The ureter is open, there is no hanging of the contrast material. The ureter drains well and there is no extravasation. TECHNIQUE: The patient was brought to the operating room. General anesthesia was induced. The pat ient was positioned in the lithotomy position. The patient was given 2 grams of Ancef IV at the sta rt of the procedure. Timeout was done. The patient was identified by her name, date, and the procedure and the side of the procedure. Then, the genital area was prepped and draped in the usua l sterile manner. A #21 [place] cystoscope sheath was introduced into the bladder. Urine was collec efe for culture and sensitivity. Then, fluoroscopy was done from the bladder up to the kidney. The n, the distal end of the JJ stent that she had was grasped with the grasper and under fluoroscopy, I pulled out the JJ stent, and that came out without any problem. Once it came out, then I used a 10 -[place] cone tip ureteral catheter and did a left retrograde pyelogram. Contrast material does go u p to the kidney without any problem and as it reached the kidney, then as I removed the cone tip fro m the ureteral orifice, the ureter empties fast and there was no hanging of the contrast material an d no extravasation. I repeated the retrograde another time and the same findings. There was some s welling and irritation around the ureteral orifice at the start because of the indwelling JJ stent. At the end of the procedure, the bladder was emptied and the patient was transferred to [facility] in stable and satisfactory condition. Dictated By: SURESH SCHWARTZ/EUGENE Conf#: [id number] DID#: [id number]
--- NOTE | 2016-11-20 11:59 | RADRPT ---
PROCEDURE: XR Cystogram/retrograde pyelogram. CLINICAL INDICATION: Cystoscopy and retrograde pyelogram. TECHNIQUE: Fluoroscopic assistance provided for cystoscopy and retrograde pyelogram of the left getachew al collecting system. 18 fluoroscopic images were obtained. Fluoroscopy time: 69.4 seconds. COMPARISON: Abdominal x-ray 10/04/2016. FINDINGS: Initial images demonstrate a left nephroureteral stent. Final images demonstrate removal of the lef t nephroureteral stent. The left ureter is normal in caliber. Blunting of the renal calyces is obs erved. IMPRESSION: Fluoroscopic assistance provided for cystoscopy and left retrograde pyelogram with stent removal. RPTAT: HLST .Lana Corcoran MD, Date Time Electronically viewed and signed by .Lana Corcoran MD, on 11/20/2016 11:58 .T/
--- NOTE | 2016-11-22 10:48 | OPPN ---
Date/Time of Note Date/Time of Note DATE: 11/22/16 TIME: 10:47 Post-Anesthesia Notes Post-Anesthesia Note Last documented vital signs Vital Signs Date Time Temp Pulse Resp B/P Pulse Ox O2 Delivery O2 Flow Rate FiO2 11/19/16 13:59 98.3 67 18 110/62 97 Room Air Activity: WNL Respiratory function: WNL Cardiovascular function: WNL Mental status: Baseline Pain reasonably controlled: Yes Hydration appropriate: Yes Nausea/Vomiting absent: Yes KINGSLEY MUSA Nov 22, 2016 10:48
== END 2016-11-19 14:22 | disposition home or self-care (01) ==
LOC: SDS 10:03
PROVIDERS: ATTEND Urology
DX: T83.89XA Other specified complication of genitourinary prosthetic devices, implants and grafts, initial encounter (principal); Y83.8 Other surgical procedures as the cause of abnormal reaction of the patient, or of later complication, without mention of misadventure at the time of the procedure; Y92.89 Other specified places as the place of occurrence of the external cause
CPT/HCPCS: 52310; 74430; 87086; J0690; J2710; J3010; Q9967; Z7512; Z7610